=== PATIENT | male | born 2000 | race Caucasian/White ===

== ENCOUNTER 2025-07-24 19:40 | Emergency (ER) | payer OTHER, SELFPAY ==
--- NOTE | ~2025-07-24 | XR_ITS ---
CLINICAL HISTORY: pain post fall 4 view left knee Comparison: None provided Findings: Bones intact. No dislocations. No significant loss of joint space, osteophytes, or erosions. No joint effusion. No radiopaque foreign body. IMPRESSION: 1. No acute findings. This document has been electronically signed by: Mamadou Curran MD on 07/24/2025 20:28:07
[2025-07-24 19:55] VITALS: BP 141/65; PULSE 79; RESP 16; TEMP 36.5; O2SAT 98; BMI 34.1
--- OUTSIDE RECORDS SUMMARY | 2025-07-24 21:35 | XMS_ITS | Clinical Summary ---
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 May repeat once after 2 hours. 18 tablet 3 05/06/2025 6 Active amLODIPine (NORVASC) 2.5 mg tablet Take 1 tablet (2.5 mg total) by mouth 1 (one) time each day. 90 each 06/06/2025 5 Active Active Problems Problem Noted Date Diagnosed Date Class 1 obesity due to exces s calories with body mass index (BMI) of 33.0 to 33.9 in adult 05/06/2025 Primary hypertension 05/06/2025 History of cold sores 05/06/2025 Diarrhea 05/06/2025 Urine retention 01/20/2025 Overview (01/20/2025): Patient is follow by [facility] Assessment & Plan (01/20/2025 3:32 PM EST): Patient is to continue Flomax. He is also continue following up with urology. 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 Encounters Date Type Department Care Team Description 06/06/2025 2:30 PM EDT Office Visit Adult Medicine [address] [phone] Rosy Yu MD Muscle spasm (Primary Dx); Primary hypertension; Family history of hemochromatosis; Obesity (BMI 30-39.9); C. difficile diarrhea; Elevated total protein; Hyperphosphatemia 06/05/2025 9:26 AM EDT - 06/05/2025 11:59 PM EDT Hospital Encounter [facility] Xray [address] [place] [phone] Other dysphagia; Sensation of lump in throat; Dysuria Discharge Disposition: Home or Self Care 06/03/2025 Telephone Infectious Disease - [place] [address] [facility] [address] [place] [address] [place], [place] 05/27/2025 3:39 PM EDT - 05/27/2025 11:59 PM EDT Hospital Encounter Radiology Department - [address] [phone] Nonintractable chronic migraine Discharge Disposition: Home or Self Care 05/09/2025 Telephone Adult [address] [phone] Rosy Yu MD 05/06/2025 5:00 PM EDT Office Visit [address] [phone] Rosy Yu MD Primary hypertension (Primary Dx); Class 1 obesity due to excess calories with body mass index (BMI) of 33.0 to 33.9 in adult, unspecified whether serious comorbidity present; Leukocytosis, unspecified type; Blurry vision, bilateral; Nonintractable chronic migraine; Low blood potassium; History of cold sores; Chronic diarrhea; C. difficile diarrhea from Last 3 Months Social History Tobacco Use Types Packs/Day Years Used Date Smoking Tobacco: Never Assessed Housing Instability Answer Date Recorde d Are you worried that in the next 2 months you may not have stable housing? Yes 02/26/2025 Food Access & Nutrition Answer Date Rec orded Do you have access to a vari ety of food including fruits and vegetables? No 02/26/2025 Access to Healthcare Answer Date Record ed Within the last 3 months, ho w many times did you visit the emergency department for your medical care? 0 02/26/2025 Health Literacy Answer Date Recorded How often do you need to hav e someone help you when you read instructions, pamphlets, or other written material from your doctor or pharmacy? Never 02/26/2025 Caregiver: How often do you need to have someone help you when you read instructions, pamphlets, or other written material from your doctor or pharmacy? Not on file 02/26/2025 Financial Risk Answer Date Recorded How hard is it for you to pa y for the very basics like food, housing, medical care, and air conditioning / heating? Hard 02/26/2025 Transportation Answer Date Recorded Has the lack of transportati on kept you from meetings, work, or from getting things needed for daily living? No Has the lack of transportati on kept you from medical appointments or from getting medications? No 02/26/2025 Social Isolation Answer Date Recorded How often do you feel lonely or isolated from th ose around you? Rarely 02/26/2025 Food Risk Answer Date Recorded Within the past 12 months we worried whether our food would run out before we got money to buy more. Sometimes true 025 Within the past 12 months th e food we bought just didn't last and we didn't have money to get more. Sometimes true 02/26/2025 Dependent Care Answer Date Recorded Do you need help finding or paying for care for your loved ones. For example, early childhood special educator or elderly care for an older adult? No 02/26/2025 Education Answer Date Recorded Do you think completing more education or training, like finishing a GED, going to college, or learning a trade, would be helpful for you? Yes 02/26/2025 Employment and Income Answer Date Recor ded During the last four weeks, have you been actively looking for work? Yes 02/26/2025 Living Situation Answer Date Recorded What is your living situation? 0 02/26/2025 Sex and Gender Information Value Date Recorded Sex Assigned at Not on file Legal Sex Male 8:19 PM EDT Gender Identity Not on file Sexual Orientation Not on file Last Filed Vital Signs Vital Sign Reading Time Taken Comments Blood Pressure 112/72 06/06/2025 2:16 PM EDT Pulse 95 06/06/2025 2:16 PM EDT Temperature 36.6 C (97.8 F) 06/06/2025 2:16 PM EDT Respiratory Rate 16 05/06/2025 5:15 PM EDT Oxygen Saturation 98% 05/06/2025 5:15 PM EDT Inhaled Oxygen Concentration - - Weight 104 kg (230 lb) 06/06/2025 2:16 PM EDT Height 175.3 cm (5' 9 ) 06/06/2025 2:16 PM EDT Body Mass Index 33.97 06/06/2025 2:16 PM EDT Plan of Treatment Upcoming Encounters Date Type Department Care Team (Late st Contact Info) Description 08/06/2025 2:30 PM EDT Consult Infectious Disease - [place] [address] [facility] [address] [place] [phone] Rochelle Lackey MD 175 [facility] [address] [place] [address] 08/21/2025 2:00 PM EDT Office Visit [facility] for [place] - [place] [address] [facility] [address] [place] [phone] Jenny Victoria, SAY [address] [place] [address] 12/09/2025 4:30 PM EST Office Visit Adult Medicine [address] [phone] Rosy Yu MD [address] [place] [address] Health Maintenance Due Date Last Done Comments Influenza Vaccine (#1) 2025 , 09/03/2019, 11/08/2018 Social Influencers of Health Screening 02/26/2026 02/26/2025 Hypertension/CHF/CAD Annual BMP Blood Test 06/06/2026 06/06/2025, 05/13/2025, 01/20/2025, Additional history exists DTaP,Tdap,and Td Vaccines (7 - Td or Tdap) 09/16/2028 09/16/2018, 07/07/2010, 10/14/2002, Additional history exists Cholesterol Screening (Lipid Panel) 01/20/2030 01/20/2025, 09/22/2021 Hepatitis B Vaccines Completed 07/06/1999, 1998, 1998 HIB Vaccines Completed 03/28/2000, 03/1999, 07/06/1999 IPV Vaccines Completed 10/14/2002, 07/2000, 08/24/1999, Additional history exists MMR Vaccines Completed 07/23/2003, 04/18/2000 Meningococcal ACWY Vaccine Aged Out 07/07/2010 N o longer eligible based on patient's age to complete this topic Varicella Vaccines Completed 07/07/2010, 04/18/2000 HPV Vaccines Discontinued 10/26/2021, 09/22/2021 HIV Screening Completed 01/20/2025 Hepatitis C Screening Completed 01/20/2025, 021 Depression Screening Completed 02/26/2025 COVID-19 Vaccine Discontinued Hepatitis A Vaccines Discontinued Meningococcal B Vaccine Aged Out No l onger eligible based on patient's age to complete this topic Pneumococcal Vaccine: Pediatrics (0 to 5 Years) and At-Risk Patients (6 to 49 Years) Aged Out No longer eligible based on patient's age to complete this topic RSV Immunization Patients Under 20 months Aged Out No longer eligible based on patient's age to complete this topic Procedures Procedure Name Priority Date/Time Associated Diagnosis Comments HERNANDEZ URINE CULTURE TUBE Routine 06/06/20 4:48 PM EDT Other dysphagia Sensation of lump in throat Dysuria URINALYSIS WITH REFLEX MICROSCOPIC AND CULTURE Routine 06/06/2025 4:39 PM EDT Other dysphagia Sensation of lump in throat Dysuria URINALYSIS WITH REFLEX MICROSCOPIC AND CULTURE Routine 06/06/2025 4:39 PM EDT Other dysphagia Sensation of lump in throat Dysuria COMPREHENSIVE METABOLIC PANEL Routine 06/06/2025 4:39 PM EDT Muscle spasm MAGNESIUM Routine 06/06/2025 4:39 PM EDT Muscle spasm PHOSPHORUS Routine 06/06/2025 4:39 PM EDT Muscle spasm CREATINE KINASE Routine 06/06/2025 4:39 PM EDT Muscle spasm HEMOCHROMATOSIS MUTATION Routine 025 4:39 PM EDT Family history of hemochromatosis XR BARIUM SWALLOW WITH VIDEO AND SPEECH Routine 06/05/2025 10:07 AM EDT Other dysphagia Sensation of lump in throat Dysuria GARBAGE PICK UP MAN VIDEOFLUOROSCOPIC SWALLOW STUDY WITH BARIUM Routine 06/05/2025 9:45 AM EDT Other dysphagia Sensation of lump in throat Dysuria CLOSTRIDIUM DIFFICILE PCR Routine 05/28/2025 2:05 PM EDT Chronic diarrhea GASTROINTESTINAL PATHOGENS BY PCR Routine 05/28/2025 2:05 PM EDT Chronic diarrhea OVA AND PARASITE EXAMINATION Routine 05/28/2025 2:05 PM EDT Chronic diarrhea CLOSTRIDIUM DIFFICILE TOXIN Routine 05/28/2025 2:05 PM EDT Chronic diarrhea MR BRAIN WO CONTRAST Routine 05/27/2025 4:30 PM EDT Nonintractable chronic migraine IMMUNOGLOBULIN IGA Routine 05/13/2025 11:13 AM EDT Chronic diarrhea GLIADIN ANTIBODIES, SERUM Routine 05/13/2025 11:13 AM EDT Chronic diarrhea ENDOMYSIAL ANTIBODY, IGA Routine 025 11:13 AM EDT Chronic diarrhea CBC WITH AUTO DIFFERENTIAL Routine 05/13/2025 11:13 AM EDT Leukocytosis, unspecified type CBC AND DIFFERENTIAL Routine 05/13/2025 11:13 AM EDT Leukocytosis, unspecified type HERPES SIMPLEX VIRUS 1 AND 2, IGG Routine 05/13/2025 11:13 AM EDT History of cold sores COMPREHENSIVE METABOLIC PANEL Routine 05/13/2025 11:13 AM EDT Chronic diarrhea TISSUE TRANSGLUTAMINASE, IGA Routine 05/13/2025 11:13 AM EDT Chronic diarrhea HERPES SIMPLEX VIRUS 1 AND 2 PCR, QUALITATIVE Routine 05/13/2025 11:13 AM EDT History of cold sores HEPATITIS C ANTIBODY Routine 01/20/2025 3:34 PM EST Annual physical exam HIV 1, 2 ANTIBODY, P24 ANTIGEN WITH REFLEX TO DIFFERENTIATION Routine 01/20/2025 3:34 PM EST Annual physical exam LIPID PANEL WITH REFLEX TO DIRECT LDL Routine 01/20/2025 3:34 PM EST Encounter for screening for cardiovascular disorders from Last 3 Months or Most Recently Relevant to Health Maintenance Results * Hernandez urine culture tube (06/06/2025 4:48 PM EDT) Extra Tube Hold for add-ons. 06/06/2025 7:01 PM EDT [facility] Comment:Auto resulted. Urine Urine specimen obtained by clean catch procedure / Unknown 06/06/2025 4:48 PM EDT 06/06/2025 4:48 PM EDT us Christian Gibbons ELECTRONICS LEAD LAB URINE ORDERABLES Final R esult [facility] [address] [place] [address], * Urinalysis with reflex microscopic and culture (06/06/2025 4:39 PM EDT) Specific [place] Urine 1.016 1.003 - 1.030 LAB URINALYSIS - AUTOMATED METHOD 06/06/2025 6:51 PM EDT [facility] pH, Urine 7.0 5.0 - 8.0 pH LAB URINALYSIS - AUTOMATED METHOD 06/06/2025 6:51 PM [facility] Leukocytes, Urine Negative Negative LAB URINALYSIS - AUTOMATED METHOD 06/06/2025 6:51 PM [facility] Nitrite, Urine Negative Negative LAB URINALYSIS - AUTOMATED METHOD 06/06/2025 6:51 PM [facility] Protein, Urine Negative <=Trace mg/dL LAB URINALYSIS - AUTOMATED METHOD 06/06/2025 6:51 PM [facility] Glucose, Urine Negative Negative mg/dL LAB URINALYSIS - AUTOMATED METHOD 06/06/2025 6:51 PM [facility] Ketones, Urine Negative Negative mg/dL LAB URINALYSIS - AUTOMATED METHOD 06/06/2025 6:51 PM [facility] Urobilinogen, Urine 0.2 0.2 - 1.0 mg/dL LAB URINALYSIS - AUTOMATED METHOD 06/06/2025 6:51 PM [facility] Bilirubin, Urine Negative Negative LAB URINALYSIS - AUTOMATED METHOD 06/06/2025 6:51 PM [facility] Blood, Urine Negative Negative LAB URINALYSIS - AUTOMATED METHOD 06/06/2025 6:51 PM [facility] Urine Urine specimen obtained by clean catch procedure / Unknown Non-blood Collection / Unknown 06/06/2025 4:39 PM EDT 06/06/2025 4:39 PM EDT us Christian Gibbons NP LAB URINE ORDERABLES Final R esult [facility] [address] [place] [address], * Hemochromatosis mutation (06/06/2025 4:39 PM EDT) Hereditary Hemochromatosis See Below 06/17/2025 4:41 AM EDT [facility] Comment: RESULT: NEGATIVE Interpretation: DNA testing indicates that this individual is negative for the C282Y and H63D pathogenic variants in the HFE gene. This negative result significantly reduces the likelihood of hereditary hemochromatosis (HH) in this individual. However, it does not rule out the presence of other pathogenic variants within the HFE gene or a diagnosis of HH. The risk of this individual to carry an HFE pathogenic variant other than those tested in this assay depends greatly on family and clinical history as well as ethnicity. This assay does not test for other primary or secondary iron overload disorders. Laboratory results and submitted clinical information reviewed by Daksha Robles, PhD, [facility]. DETAILED ASSAY INFORMATION: Hereditary hemochromatosis (HH) is an autosomal recessive disorder of iron metabolism that can result in iron overload and potential organ failure. It is one of the most common genetic disorders in individuals of - ancestry, with an estimated carrier frequency of 10%. HH is caused by pathogenic variants in the HFE gene. Most individuals with HH (60-90%) are homozygous for the C282Y pathogenic variant. A smaller percentage of affected individuals are either compound heterozygous for the C282Y and H63D pathogenic variants (3%-8%), or homozygous for the H63D pathogenic variant (approximately 1%). METHODOLOGY: This assay detects two pathogenic variants in the HFE gene, C282Y (NM 163830.2: c.845G>A, p.[id number]) and H63D (NM 546303.2: c.187C>G, p.[id number]), that are commonly associated with HH. These variants are detected by multiplex-polymerase chain reaction (PCR) amplification, followed by restriction enzyme digestion and capillary electrophoresis. LIMITATIONS: This assay does not detect other pathogenic variants in the HFE gene that may be associated with HH. Although rare, false positive or false negative results may occur. All results should be interpreted in the context of clinical findings, relevant history, and other laboratory data. Health care providers, please contact your local [employer]' genetic counselor or call [phone] ( ) for assistance with the interpretation of these results. This test was developed and its analytical performance characteristics have been determined by [employer] [facility]. It has not been cleared or approved by FDA. This assay has been validated pursuant to the CLIA regulations and is used for clinical purposes. For more information, please refer to http://education.Infiniu/faq/hemochromatosis. (This link is being provided for informational/educational purposes only.) A portion of the testing was performed at [facility]. Reviewed and signed by Laboratory results and submitted clinical information reviewed by Daksha Robles, PhD, [facility], Signed on 06/16/2025 at 23:48 Test Performed at: [employer] [address] [address] Rain Cordero MD, PhD, [facility] Blood Venous blood specimen / Unknown Venipuncture / Unknown 06/06/2025 4:39 PM EDT 06/06/2025 4:39 PM EDT us Rosy Yu MD LAB MOLECULAR DIAGNOSTICS O RDERABLES Final Result [facility] [address] [place] [address] * (ABNORMAL) Phosphorus (06/06/2025 4:39 PM EDT) Phosphorus 4.8(H) 2.5 - 4.5 mg/dL LAB CHEMISTRY METHOD 06/06/2025 7:22 PM EDT [facility] Blood Venous blood specimen / Unknown Venipuncture / Unknown 06/06/2025 4:39 PM EDT 06/06/2025 4:39 PM EDT us Rosy Yu MD LAB BLOOD ORDERABLES Final Result Performing Organization Address [facility] Co de Phone Number [facility] [address] [place] [address], [place] [phone] * Magnesium (06/06/2025 4:39 PM EDT) [facility] Magnesium 2.2 1.9 - 2.6 mg/dL LAB CHEMISTRY METHOD 06/06/2025 7:22 PM EDT [facility] Blood Venous blood specimen / Unknown Venipuncture / Unknown 06/06/2025 4:39 PM EDT 06/06/2025 4:39 PM EDT us Rosy Yu MD LAB BLOOD ORDERABLES Final Result Performing Organization Address [facility] de Phone Number [facility] [address] [place] [address], [place] [phone] * Creatine kinase (06/06/2025 4:39 PM EDT) [facility] Total CK 142 22 - 269 unit/L LAB CHEMISTRY METHOD 06/06/2025 7:22 PM EDT [facility] Blood Venous blood specimen / Unknown Venipuncture / Unknown 06/06/2025 4:39 PM EDT 06/06/2025 4:39 PM EDT us Rosy Yu MD LAB BLOOD ORDERABLES Final Result Performing Organization Address [facility] Co de Phone Number [facility] [address] [place] [address], [place] [phone] * (ABNORMAL) Comprehensive metabolic panel (06/06/2025 4:39 PM EDT) Only the most recent of2 resultswithin the time period is included. Sodium 139 133 - 145 mmol/L LAB CHEMISTRY METHOD 06/06/2025 7:30 PM [facility] Potassium 3.8 3.5 - 5.5 mmol/L LAB CHEMISTRY METHOD 06/06/2025 7:30 PM [facility] Chloride 101 96 - 110 mmol/L LAB CHEMISTRY METHOD 06/06/2025 7:30 PM [facility] CO2 28 21 - 32 mmol/L LAB CHEMISTRY METHOD 06/06/2025 7:30 PM [facility] Anion Gap 10 3 - 11 LAB CHEMISTRY METHOD 06/06/2025 7:30 PM [facility] Glucose 78 70 - 100 mg/dL LAB CHEMISTRY METHOD 06/06/2025 7:30 PM [facility] BUN 10 5 - 25 mg/dL LAB CHEMISTRY METHOD 06/06/2025 7:30 PM [facility] Creatinine 0.90 0.70 - 1.30 mg/dL LAB CHEMISTRY METHOD 06/06/2025 7:30 PM [facility] eGFR 121 >=60 mL/min/1. 73m2 LAB CHEMISTRY METHOD 06/06/2025 7:30 PM [facility] Comment:Calculation based on the Chronic Kidney Disease Epidemiology Collaboration (CKD-EPI) equation refit without adjustment for race. BUN/Creatinine Ratio 11.1 LAB CHEMISTRY METHOD 06/06/2025 7:30 PM [facility] Calcium 10.1 8.5 - 10.5 mg/dL LAB CHEMISTRY METHOD 06/06/2025 7:30 PM [facility] AST (SGOT) 23 10 - 42 unit/L LAB CHEMISTRY METHOD 06/06/2025 7:30 PM [facility] ALT (SGPT) 57 10 - 60 unit/L LAB CHEMISTRY METHOD 06/06/2025 7:30 PM [facility] Alkaline Phosphatase 99 42 - 121 unit/L LAB CHEMISTRY METHOD 06/06/2025 7:30 PM EDT [facility] Total Protein 8.2(H) 6.0 - 8.0 g/dL LAB CHEMISTRY METHOD 06/06/2025 7:30 PM EDT [facility] Albumin 5.1(H) 3.2 - 5.0 g/dL LAB CHEMISTRY METHOD 06/06/2025 7:30 PM EDT [facility] Total Bilirubin 0.7 0.0 - 1.4 mg/dL LAB CHEMISTRY METHOD 06/06/2025 7:30 PM EDT [facility] Blood Venous blood specimen / Unknown Venipuncture / Unknown 06/06/2025 4:39 PM EDT 06/06/2025 4:39 PM EDT us Rosy Yu MD LAB BLOOD ORDERABLES Final Result [facility] [address] [place] [address], [place] [phone] * XR Barium Swallow with Video and Speech (06/05/2025 10:07 AM EDT) Anatomical Region Laterality Modality Head and Neck Radiographic Radha ging 06/05/2025 10:5 1 AM EDT Impressions 06/05/2025 12:20 PM EDT Normal swallowing function. Please refer to the dedicated speech pathologist report for further details as clinically indicated. -------- FINAL REPORT -------- Dictated By: Analia Rogers Dictated Date: 06/05/2025 10:51 ET Assigned Physician: Estiven Collado Reviewed and Electronically Signed By: Estiven Collado Signed Date: 06/05/2025 12:20 ET Workstation ID: [id number] Transcribed By: Self Edit Transcribed Date: 06/05/2025 10:54 ET Resident/PA/ELECTRONICS LEAD: Analia Rogers Narrative 06/05/2025 12:20 PM EDT CLINICAL HISTORY: Difficulty swallowing. STUDY: Modified barium swallow study COMPARISON: None HISTORY: Patient is a 24-year-old male with history of globus sensation, dysphagia. TECHNIQUE: Multiple sequential fluoroscopic images of the lateral neck were obtained for a swallowing function study. Barium enhanced consistencies of pudding, honey, nectar, thin liquid, semi- solid, and a 13 mm barium tablet were utilized for evaluation. Examination was performed with the speech therapist present. FINDINGS: There was no evidence for laryngeal penetration or aspiration of the various consistencies. A 13mm barium tablet was swallowed without difficulty with prompt passage of pill from the esophagus into the stomach. DAP: 0.1 Gycm^2 Procedure Note Estiven Collado MD - 06/05/2025 CLINICAL HISTORY: Difficulty swallowing. STUDY: Modified barium swallow study COMPARISON: None HISTORY: Patient is a 24-year-old male with history of globus sensation,dysphagia. TECHNIQUE: Multiple sequential fluoroscopic images of the lateral neckwere obtained for a swallowing function study. Barium enhancedconsistencies of pudding, honey, nectar, thin liquid, semi-solid, and a 13mm barium tablet were utilized for evaluation. Examination was performedwith the speech therapist present. FINDINGS: There was no evidence for laryngeal penetration or aspiration of thevarious consistencies. A 13mm barium tablet was swallowed withoutdifficulty with prompt passage of pill from the esophagus into thestomach. DAP: 0.1 Gycm^2 IMPRESSION: Normal swallowing function. Please refer to the dedicated speech pathologist report for furtherdetails as clinically indicated. -------- FINAL REPORT -------- Dictated By: Analia Rogers Dictated Date: 06/05/2025 10:51 ET Assigned Physician: Estiven Collado Reviewed and Electronically Signed By: Estiven Collado Signed Date: 06/05/2025 12:20 ET Workstation ID: [id number] Transcribed By: Self Edit Transcribed Date: 06/05/2025 10:54 ET Resident/PA/ELECTRONICS LEAD: Analia Rogers Christian Gibbons NP IMG FLUOROSCOPY PROCEDURES F inal Result * GARBAGE PICK UP MAN videofluoroscopic swallow study with barium (06/05/2025 9:45 AM EDT) Janett Hurst, NICHOLE - 06/05/2025 9:45 AM EDT NICHOLE Teresa 06/05/2025 1:18 PM Speech/Language Pathology OUTPATIENT MODIFIED BARIUM SWALLOW STUDY/ VIDEOFLUOROSCOPIC EVALUATION OF THE SWALLOW NAME: José Antonio Page DATE OF : 2000 DATE: 06/05/2025 RECOMMENDATIONS: Recommendations/Treat Recommendations Comment: f/u for Neurology due to symptoms Solid Consistency: IDDSI Level 7 Regular Liquid Consistency: Thin liquids Liquid Administration Via: Straw, Cup Recommended Medication Route: PO Recommended Medication Administration: (per pt preference) Supervision: Independent Compensations: Small sips/bites, Alternating liquids and solids (Recommend Swallow strategies with epsiodes of fatigue.) Postural Changes and/or Swallow Maneuvers: Upright TREATMENT RECOMMENDATIONS: Evaluation Only - No Additional Skilled GARBAGE PICK UP MAN Needs Indicated at this time. Summary and Impressions: José Antonio Page is a 24 y.o. who presents with WNL Oropharyngeal Swallow Function on MBS today. No laryngeal penetration and no tracheal aspiration. Pharynx cleared of any residue. Discussed use of strategies when pt has episodes of fatigue. Pt also c/o misarticulations, new for patient. Pt has f/u with Neurology. Recommend GARBAGE PICK UP MAN if warranted after work up. 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 Progressively worse after 2 years. Upcoming Neurology appt due to Migraines. Also has spasms and fatigues. Diet Prior to this Study: Regular/thin liquids Dysphagia Diagnosis: Within Functional Limits SUBJECTIVE: Pleasant, ambulatory. Other dysphagia [R13.19] Sensation of lump in throat [R09.A2] Dysuria [R30.0] GARBAGE PICK UP MAN VIDEOFLUOROSCOPIC SWALLOW STUDY WITH BARIUM [[id number]] XR BARIUM SWALLOW WITH VIDEO AND SPEECH [[id number]] ALLERGIES: Allergies Allergen Reactions Penicillin Rash OBJECTIVE Respiratory status: Room air DYSPHAGIA HISTORY/PREVIOUS MBSs none DYSPHAGIA SYMPTOMS REPORTED: Difficulty swallowing food MENTAL STATUS: Alert , Responsive, and Cooperative Oral/Motor: Oral motor skills WNL for Speech/Swallowing tasks during MBS. Fluoroscopy View: Lateral Position during Eval: Standing CONSISTENCIES TRIALED FOOD: IDDSI Level 7 Regular , IDDSI Level 5 Minced and Moist, and IDDSI Level 4 Puree LIQUID: IDDSI Level 3 Moderately Thick, IDDSI Level 2 Mildly Thick, and IDDSI Level 0 Thin BARIUM TABLET: whole with water Oral Phase: Oral Phase: Within Functional Limits Pharyngeal Phase: Pharyngeal Phase: Within Functional Limits Cricopharyngeal/Esophageal Phase: Cricopharyngeal Phase: Within Functional Limits EDUCATION Education: Education provided: Reviewed MBS video Swallow strategies Applied Knowledge, Verbal Understanding, and Demonstrated Skills Janett Yousif, GARBAGE PICK UP MAN 06/05/2025 Christian Gibbons NP GARB[employer] P[employer] MAN ORDERABLES Final Result * Gastrointestinal pathogens molecular study (05/28/2025 2:05 PM EDT) Campylobacter Detection by PCR Not Detected Not Detected LAB MICROBIOLOGY METHOD 5 6:03 PM EDT [facility] Plesiomonas shigelloides Detection by PCR Not Detected Not Detected LAB MICROBIOLOGY METHOD 5 6:03 PM EDT [facility] Salmonella Detection by PCR Not Detected Not Detected LAB MICROBIOLOGY METHOD 5 6:03 PM EDT [facility] Vibrio Detection by PCR Not Detected Not Detected LAB MICROBIOLOGY METHOD 5 6:03 PM EDT [facility] Vibrio cholerae Detection by PCR Not Detected Not Detected LAB MICROBIOLOGY METHOD 5 6:03 PM EDT [facility] Yersinia enterocolitica Detection by PCR Not Detected Not Detected LAB MICROBIOLOGY METHOD 5 6:03 PM EDT [facility] Enteroaggregative E coli EAEC Detection by PCR Not Detected Not Detected LAB MICROBIOLOGY METHOD 5 6:03 PM EDT [facility] Enteropathogenic E coli EPEC Detection Not Detected Not Detected LAB MICROBIOLOGY METHOD 5 6:03 PM EDT [facility] Enterotoxigenic E coli ETEC LTST Detection Not Detected Not Detected LAB MICROBIOLOGY METHOD 5 6:03 PM EDT [facility] Shiga-like toxin producing E coli STEC STX1 STX2 Det Not Detected Not Detected [facility] Shigella Enteroinvasive E coli EIEC Detection Not Detected Not Detected LAB MICROBIOLOGY METHOD 5 6:03 PM EDT [facility] Cryptosporidium Detection by PCR Not Detected Not Detected [facility] Cyclospora cayetanensis Detection by PCR Not Detected Not Detected LAB MICROBIOLOGY METHOD 5 6:03 PM [facility] Entamoeba histolytica Detection by PCR Not Detected Not Detected LAB MICROBIOLOGY METHOD 5 6:03 PM [facility] Giardia lamblia Detection by PCR Not Detected Not Detected LAB MICROBIOLOGY METHOD 5 6:03 PM [facility] Adenovirus F 40 41 Detection by PCR Not Detected Not Detected LAB MICROBIOLOGY METHOD 5 6:03 PM [facility] Astrovirus Detection by PCR Not Detected Not Detected LAB MICROBIOLOGY METHOD 5 6:03 PM [facility] Norovirus GI GII Detection by PCR Not Detected LAB MICROBIOLOGY METHOD 5 6:03 PM [facility] Sapovirus Detection by PCR Not Detected Not Detected LAB MICROBIOLOGY METHOD 5 6:03 PM [facility] Rotavirus A Detection by PCR Not Detected Not Detected LAB MICROBIOLOGY METHOD 5 6:03 PM [facility] Stool Rectum structure / Unknown Non-blood Collection / Unknown 05/28/2025 2:05 PM EDT 05/28/2025 2:05 PM EDT [facility] - 05/28/2025 6:03 PM EDT PCR testing is much more sensitive than traditional techniques and allows for the detection of low numbers of stool pathogens. The clinical correlation of PCR results with the need for treatment and clinical outcomes has not been established. Therefore the results of PCR testing for stool pathogens must be taken into clinical context when making treatment decisions. This is a diagnostic test only, repeat testing for cure is not advised. You may consider infectious disease consult for additional guidance. Testing Performed by [facility] Rosy Yu MD LAB MICROBIOLOGY - GENERAL ORDERABLES Final Result Performing Organization Address [facility] Co de Phone Number [facility] [address] [place] [address], [place] [phone] * Ova and parasite examination (05/28/2025 2:05 PM EDT) Ova and Parasite No Ova or Parasite seen. 06/02/2025 11:58 AM EDT [facility] Stool Rectum structure / Unknown Non-blood Collection / Unknown 05/28/2025 2:05 PM EDT 05/28/2025 2:05 PM EDT Narrative [facility] - 06/02/2025 11:58 AM EDT Special test request required for Coccidia and Microsporidia. Rosy Yu MD LAB MICROBIOLOGY - GENERAL ORDERABLES Final Result Performing Organization Address [facility] Co de Phone Number [facility] [address] [place] [address], [place] [phone] * (ABNORMAL) Clostridium difficile molecular study (05/28/2025 2:05 PM EDT) Clostridium difficile PCR Positive (AA) Negative LAB MICROBIOLOGY METHOD 05/28/2025 6:32 PM EDT [facility] Comment: CRITICAL RESULT POSITIVE FOR TOXIN PRODUCING CLOSTRIDIOIDES DIFFICILE, NO ADDITIONAL TESTING IS NECESSARY. REPEAT SAMPLES SHOULD NOT BE SUBMITTED FOR TEST OF CURE. Stool Rectum structure / Unknown Non-blood Collection / Unknown 05/28/2025 2:05 PM EDT 05/28/2025 5:21 PM EDT Rosy Yu MD LAB MICROBIOLOGY - GENERAL ORDERABLES Final Result Performing Organization Address [facility] Co de Phone Number [facility] [address] [place] [address], [place] [phone] * Clostridium difficile toxin (05/28/2025 2:05 PM EDT) C difficile Toxins A+B, EIA 05/28/2025 5:21 PM EDT [facility] Comment:Refer to C. difficil e PCR assay for results. Stool Rectum structure / Unknown Non-blood Collection / Unknown 05/28/2025 2:05 PM EDT 05/28/2025 2:05 PM EDT Rosy Yu MD LAB MICROBIOLOGY - GENERAL ORDERABLES Final Result Performing Organization Address [facility] de Phone Number [facility] [address] [place] [address], [place] [phone] * MR Brain wo Contrast (05/27/2025 4:30 PM EDT) Anatomical Region Laterality Modality Head and Neck Magnetic Resonan ce 05/27/2025 4:31 PM EDT Impressions 05/27/2025 4:37 PM EDT Borderline low-lying cerebellar tonsils. Otherwise, unremarkable exam. -------- FINAL REPORT -------- Dictated By: Luzmaria Davis Dictated Date: 05/27/2025 16:31 ET Assigned Physician: Luzmaria Davis Reviewed and Electronically Signed By: Luzmaria Davis Signed Date: 05/27/2025 16:37 ET Workstation ID: [id number] Transcribed By: Self Edit Transcribed Date: 05/27/2025 16:31 ET Narrative 05/27/2025 4:37 PM EDT MR BRAIN WO CONTRAST MRI BRAIN WITHOUT CONTRAST HISTORY: Chronic migraine. COMPARISON: CT head and CTA head 04/22/2025. Technique: MRI of the brain without contrast was performed utilizing the standard departmental protocol. FINDINGS: The ventricles and sulci are normal in size and symmetric. There is no acute intracranial hemorrhage or acute infarct. There is no mass effect or midline shift. The basal cisterns are patent. The paranasal sinuses and mastoid air cells are clear. The cerebellar tonsils extend to the level of the foramen magnum. Pituitary gland is grossly unremarkable. Infundibulum is midline. Procedure Note Luzmaria Davis MD - 05/27/2025 MR BRAIN WO CONTRAST MRI BRAIN WITHOUT CONTRAST HISTORY: Chronic migraine. COMPARISON: CT head and CTA head 04/22/2025. Technique: MRI of the brain without contrast was performed utilizing thestandard departmental protocol. FINDINGS: The ventricles and sulci are normal in size and symmetric. Thereis no acute intracranial hemorrhage or acute infarct. There is no masseffect or midline shift. The basal cisterns are patent. The paranasal sinuses and mastoid air cells are clear. The cerebellar tonsils extend to the level of the foramen magnum. Pituitary gland is grossly unremarkable. Infundibulum is midline. IMPRESSION: Borderline low-lying cerebellar tonsils. Otherwise, unremarkable exam. -------- FINAL REPORT -------- Dictated By: Luzmaria Davis Dictated Date: 05/27/2025 16:31 ET Assigned Physician: Luzmaria Davis Reviewed and Electronically Signed By: Luzmaria Davis Signed Date: 05/27/2025 16:37 ET Workstation ID: [id number] Transcribed By: Self Edit Transcribed Date: 05/27/2025 16:31 ET us Rosy Yu MD IM MRI PROCEDURES Final Re sult * Herpes simplex virus 1 and 2 molecular study, qualitative (05/13/2025 11:13 AM EDT) Specimen Source Blood - EDTA 05/16/2025 10:58 AM EDT [facility] Herpes simplex Virus I Not detected Not detected 05/16/2025 10:58 AM EDT [facility] Herpes simplex Virus II Not detected Not detected 05/16/2025 10:58 AM EDT [facility] Comment: This test utilizes a real-time polymerase chain reaction procedure to amplify and detect portions of the herpes simplex virus glycoprotein G genes. The analytical sensitivity of this assay is 50 copies/mL. A Not detected result does not rule out infection. This test uses commercial reagents that have not been approved or cleared by the FDA. The FDA has determined that such clearance or approval is not necessary. The performance characteristics of this procedure were determined by [facility]. This test is performed pursuant to a license agreement with [employer] Test performed at [facility], [address] , [place] [address] Leanne Velasquez MD, PhD - Diagnostic Sales Specialist Blood Venous blood specimen / Unknown Venipuncture / Unknown 05/13/2025 11:13 AM EDT 05/13/2025 11:13 AM EDT Rosy Yu MD LAB MICROBIOLOGY - GENERAL ORDERABLES Final Result [facility] [address] [place] [address] * (ABNORMAL) Herpes simplex virus 1 and 2, IgG (05/13/2025 11:13 AM EDT) HSV 1 IgG 52.60(H) <=0.90 index aria LAB CHEMISTRY METHOD 05/13/2025 3:11 PM EDT [facility] HSV-1 IgG Interpretation Positive(A) Negative LAB CHEMISTRY METHOD 05/13/2025 3:11 PM EDT [facility] HSV 2 IgG 0.05 <=0.90 index aria LAB CHEMISTRY METHOD 05/13/2025 3:11 PM EDT [facility] HSV-2 IgG Interpretation Negative Negative LAB CHEMISTRY METHOD 05/13/2025 3:11 PM EDT [facility] Blood Venous blood specimen / Unknown Venipuncture / Unknown 05/13/2025 11:13 AM EDT 05/13/2025 11:13 AM EDT Rosy Yu MD LAB BLOOD ORDERABLES Final Result [facility] [address] [place] [address], [place] [phone] * Endomysial antibody, IgA (05/13/2025 11:13 AM EDT) [facility] Endomysial IgA Negative Negative 05/16/2025 10:43 AM EDT [facility] Blood Venous blood specimen / Unknown Venipuncture / Unknown 05/13/2025 11:13 AM EDT 05/13/2025 11:13 AM EDT Rosy Yu MD LAB BLOOD ORDERABLES Final Result Performing Organization Address City/[facility]/ZIP Co de Phone Number [facility] [address] [place] [address], [place] [phone] * (ABNORMAL) CBC auto differential (05/13/2025 11:13 AM EDT) [facility] WBC 8.9 4.8 - 10.8 K/mcL LAB HEMETOLOGY METHOD 05/13/2025 12:42 PM EDT [facility] RBC 5.70(H) 4.50 - 5.50 M/mcL LAB HEMETOLOGY METHOD 05/13/2025 12:42 PM EDT [facility] Hemoglobin 16.3 13.5 - 17.5 g/dL LAB HEMETOLOGY METHOD 05/13/2025 12:42 PM EDT [facility] Hematocrit 48.9 42.0 - 54.0 % LAB HEMETOLOGY METHOD 05/13/2025 12:42 PM EDT [facility] MCV 86.5 79.0 - 98.0 FL LAB HEMETOLOGY METHOD 05/13/2025 12:42 PM EDT [facility] MCH 28.8 27.0 - 32.0 pcg LAB HEMETOLOGY METHOD [facility]/13[facility]2025 [facility] MCHC 33.3 32.0 - 37.0 g/dL LAB HEMETOLOGY METHOD 05/13/2025 12:42 PM [facility] RDW 12.9 11.0 - 15.0 % LAB HEMETOLOGY METHOD 05/13/2025 12:42 PM EDT [facility] Platelets 302 130 - 400 K/mcL LAB HEMETOLOGY METHOD 05/13/2025 12:42 PM [facility] MPV 9.2 7.0 - 11.0 FL LAB HEMETOLOGY METHOD 05/13/2025 12:42 PM [facility] NRBC 0.0 <1.0 % LAB HEMETOLOGY METHOD 05/13/2025 12:42 PM [facility] NRBC Absolute 0.00 <0.10 K/mcL LAB HEMETOLOGY METHOD 05/13/2025 12:42 PM [facility] Neutrophils Relative 60.9 % LAB HEMETOLOGY METHOD 05/13/2025 12:42 PM [facility] Lymphocytes Relative 28.4 % LAB HEMETOLOGY METHOD 05/13/2025 12:42 PM [facility] Monocytes Relative 8.4 % LAB HEMETOLOGY METHOD 05/13/2025 12:42 PM [facility] Eosinophils Relative 1.1 % LAB HEMETOLOGY METHOD 05/13/2025 12:42 PM [facility] Basophils Relative 0.6 % LAB HEMETOLOGY METHOD 05/13/2025 12:42 PM [facility] Immature Granulocytes Relative 0.6 % LAB HEMETOLOGY METHOD 05/13/2025 12:42 PM EDT [facility] Neutrophils Absolute 5.43 1.50 - 7.00 K/mcL LAB HEMETOLOGY METHOD 05/13/2025 12:42 PM EDT [facility] Lymphocytes Absolute 2.53 1.00 - 5.00 K/mcL LAB HEMETOLOGY METHOD 05/13/2025 12:42 PM EDT [facility] Monocytes Absolute 0.75 0.20 - 1.00 K/mcL LAB HEMETOLOGY METHOD 05/13/2025 12:42 PM EDT [facility] Eosinophils Absolute 0.10 0.00 - 0.50 K/mcL LAB HEMETOLOGY METHOD 05/13/2025 12:42 PM EDT [facility] Basophils Absolute 0.05 0.00 - 0.20 K/mcL LAB HEMETOLOGY METHOD 05/13/2025 12:42 PM EDT [facility] Immature Granulocytes Absolute 0.05(H) 0.00 - 0.03 K/mcL LAB HEMETOLOGY METHOD 05/13/2025 12:42 PM EDT [facility] Blood Venous blood specimen / Unknown Venipuncture / Unknown 05/13/2025 11:13 AM EDT 05/13/2025 11:13 AM EDT us Rosy Yu MD LAB BLOOD ORDERABLES Final Result [facility] [address] [place] [address], * Gliadin antibodies, serum (05/13/2025 11:13 AM EDT) Gliadin IgA 5 <20 units LAB CHEMISTRY METHOD 05/14/2025 11:56 AM EDT [facility] Gliadin IgG 1 <20 units LAB CHEMISTRY METHOD 05/14/2025 11:56 AM EDT [facility] Gliadin IgA Antibody Negative Negative LAB CHEMISTRY METHOD 05/14/2025 11:56 AM EDT [facility] Gliadin IgG Antibody Negative Negative LAB CHEMISTRY METHOD 05/14/2025 11:56 AM EDT [facility] Blood Venous blood specimen / Unknown Venipuncture / Unknown 05/13/2025 11:13 AM EDT 05/13/2025 11:13 AM EDT Rosy Yu MD LAB BLOOD ORDERABLES Final Result Performing Organization Address City/[facility]/ZIP Co de Phone Number [facility] [address] [place] [address], [place] [phone] * Tissue transglutaminase, IgA (05/13/2025 11:13 AM EDT) Tissue Transglutaminase Ab, IgA Quant 1 <4 unit/mL LAB CHEMISTRY METHOD 05/14/2025 11:59 AM EDT [facility] Tissue Transglutaminase Ab, IgA Negative Negative LAB CHEMISTRY METHOD 05/14/2025 11:59 AM EDT [facility] Blood Venous blood specimen / Unknown Venipuncture / Unknown 05/13/2025 11:13 AM EDT 05/13/2025 11:13 AM EDT Rosy Yu MD LAB BLOOD ORDERABLES Final Result [facility] [address] [place] [address], [place] [phone] * Immunoglobulin IgA (05/13/2025 11:13 AM EDT) IgA 134 61 - 348 mg/dL LAB CHEMISTRY METHOD 05/13/2025 3:29 PM EDT [facility] Blood Venous blood specimen / Unknown Venipuncture / Unknown 05/13/2025 11:13 AM EDT 05/13/2025 11:13 AM EDT Rosy Yu MD LAB BLOOD ORDERABLES Final Result Performing Organization Address City/[facility]/ZIP Co de Phone Number [facility] [address] [place] [address], [place] [phone] * Hepatitis C antibody (01/20/2025 3:34 PM EST) Hepatitis C Antibody Negative Negative LAB CHEMISTRY METHOD 01/20/2025 7:39 PM EST [facility] Blood Venous blood specimen / Unknown Venipuncture / Unknown 01/20/2025 3:34 PM EST 01/20/2025 3:34 PM EST Christian Gibbons NP LAB BLOOD ORDERABLES Final R esult Performing Organization Address [facility] de Phone Number [facility] [address] [place] [address], [place] [phone] * HIV 1,2 antibody, p24 antigen with reflex to differentiation (01/20/2025 3:34 PM EST) [facility] HIV Combo AB/AG Negative Negative LAB CHEMISTRY METHOD 01/20/2025 7:39 PM EST [facility] Blood Venous blood specimen / Unknown Venipuncture / Unknown 01/20/2025 3:34 PM EST 01/20/2025 3:34 PM EST Narrative [facility] - 01/20/2025 7:39 PM EST This assay is a 4th generation assay allowing for earlier detection of HIV infection by detecting the presence of the HIV-1 p24 antigen as well as the traditional antibodies to HIV type 1 (including group O) and type 2. Use of a 4th generation assay is the current CDC recommendation for HIV screening. Christian Gibbons [employer] LAB BLOOD ORDERABLES Final R esult Performing Organization Address [facility]/ZIP Co de Phone Number [facility] [address] [place] [address], [place] [phone] * Lipid panel with reflex to direct LDL (01/20/2025 3:34 PM EST) Cholesterol 156 0 - 200 mg/dL LAB CHEMISTRY METHOD 01/20/2025 7:18 PM EST [facility] Triglycerides 94 0 - 150 mg/dL LAB CHEMISTRY METHOD 01/20/2025 7:18 PM EST [facility] HDL 46 >=40 mg/dL LAB CHEMISTRY METHOD 01/20/2025 7:18 PM EST [facility] LDL Calculated 91 0 - 100 mg/dL LAB CHEMISTRY METHOD 01/20/2025 7:18 PM EST [facility] VLDL Cholesterol Hayden 18.8 mg/dL LAB CHEMISTRY METHOD 01/20/2025 7:18 PM EST [facility] Non HDL Chol. (LDL+VLDL) 110 <145 mg/dL LAB CHEMISTRY METHOD 01/20/2025 7:18 PM EST [facility] Chol/HDL Ratio 3.4 0.0 - 4.4 LAB CHEMISTRY METHOD 01/20/2025 7:[address] 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
--- OUTSIDE RECORDS SUMMARY | 2025-07-24 21:35 | XMS_ITS | Clinical Summary ---
Author Organization [facility] Address [address] [place] [address] Care Team Providers Care Wrister Name Role Phone Unavailable Primary Care Provider Unavailabl e Allergies No known active allergies Social History Tobacco Use Types Packs/Day Years Used Date Smoking Tobacco: Never Assessed Sex and Gender Information Value Date Recorded Sex Assigned at Not on file Gender Identity Not on file Sexual Orientation Not on file Job Start Date Occupation Industry Not on file Not on file Not on file Last Filed Vital Signs Vital Sign Reading Time Taken Comments Blood Pressure 135/85 07/06/2024 3:58 PM EDT Pulse 106 07/06/2024 3:58 PM EDT Temperature 37.2 C (99 F) 07/06/2024 3:58 PM EDT Respiratory Rate 16 07/06/2024 3:58 PM EDT Oxygen Saturation 99% 07/06/2024 3:58 PM EDT Inhaled Oxygen Concentration - - Weight 96.2 kg (212 lb) 07/06/2024 3:58 PM EDT Height 177.8 cm (5' 10 ) 07/06/2024 3:58 PM EDT Body Mass Index 30.42 07/06/2024 3:58 PM EDT Plan of Treatment Health Maintenance Due Date Last Done Comments COVID-19 Vaccine (#1) 03/05/1999 Depression Screening 2010 BMI Counseling 2016 Preventative Health Evaluation 2016 DTap / Tdap / Td (1 - Tdap) 2017 Influenza Vaccine (#1) 2025 , 09/03/2019, 11/08/2018 Hepatitis B Vaccines Completed 07/06/1999, 1998, 1998 Hepatitis C Screening Completed 09/22/2021 Pneumococcal Vaccine Aged Out No long er eligible based on patient's age to complete this topic RSV Ped < 20 months Aged Out No longe r eligible based on patient's age to complete this topic José Antonio Page Jr. Personal/Family Self 2000 [address] [place] [address]
--- OUTSIDE RECORDS SUMMARY | 2025-07-24 21:35 | XMS_ITS ---
Author Name [facility] Organization Unknown Problems Problem Status Onset Date Problem Type Date of Resoluti on Source Difficulty urinating active EncounterDiagnosisAct CTTHNE MG Care Team Organization Name Specialty Phone Email Start Date End Da te [facility] Ren Caicedo Primary Care 02/06/202507/2025
--- NOTE | 2025-07-24 21:52 | ED.LOWEXIN ---
HPI - Extremity Injury (Lower) General Chief Complaint: Extremity Injury, Lower Stated Complaint: left knee inj Time Seen by Provider: 07/24/25 21:51 Source: patient Mode of arrival: ambulatory Limitations: no limitations History of Present Illness ED Provider: Leroy DEAL HPI Narrative: The patient is a 24-year-old male presenting to the ED for evaluation, we will have knee pain which began this evening after he slipped on wet floor at a local business around 18:30. The patient denies previous injury or surgery of the left knee. Patient reports since that time he has been experiencing pain in the posterior anteromedial aspect of the left knee increased with weight-bearing and radiating into the his left low back. The patient denies head strike or LOC. The patient denies prodrome prior to or following the injury. Related Data Previous Rx's ?Medication ?Instructions ?Recorded acetaminophen 500 mg capsule 1,000 mg (2 x 500 mg) PO .q8 PRN 07/24/25 fever or pain #30 caps ibuprofen 600 mg tablet 600 mg PO Q8H PRN fever or pain 07/24/25 #30 tabs Allergies Allergy/AdvReac Type Severity Reaction Status Date / Time Penicillins Allergy Anaphylaxis Verified 07/24/25 19:57 Review of Systems Review of Systems: Yes all other systems are reviewed and are negative PMFSH Social History Social History Advance Directives: No Physical Exam Vital Signs: Vital Signs: Last Vital Signs Temp 97.7 F 07/24/25 19:55 Pulse 79 07/24/25 19:55 Resp 16 07/24/25 19:55 BP 141/65 H 07/24/25 19:55 Pulse Ox 98 07/24/25 19:55 O2 Del Method Nasal Cannula 07/24/25 19:55 BMI result Body Mass Index 34.1 CONSTITUTIONAL: The patient appears non-toxic, well nourished and in no acute distress. Vital signs as documented. HEAD: Atraumatic, normocephalic. EYES: EOMs grossly intact, pupils equal, conjunctiva clear, no exudate. ENT: Nares patent, no discharge. Airway patent, no audible stridor, visible mucosa is pink and moist without noted lesions. NECK: trachea is midline, no obvious masses or gross abnormalities. CHEST: Symmetric movement, normal appearance. LUNGS: Non-labored work of breathing. CARDIAC: No evidence of hypoperfusion. ABDOMEN: Nondistended, no obvious injury. : Deferred. EXTREMITIES: Exam of the left knee demonstrates no ligament laxity or significant pain elicited with ligamentous strain, there is pain elicited with Luis's test of the medial meniscus. Extensor mechanism is intact. Distal CSM is intact, 2+ DP/PT pulses. Moves all other extremities spontaneously without reported pain. No other obvious injury or deformity noted. NEURO: Alert and oriented x3, CN II-XII appear grossly intact. Cerebellar Functioning grossly intact. Speech clear and appropriate. SKIN: Warm, dry, color appropriate. No rashes or lesions noted. Medical Decision Making Medical Decision Making MDM Narrative: 10:16 PM 07/24/2025 (Graciela DEAL): The patient is a 24-year-old male presenting to the ED for evaluation, we will have knee pain which began this evening after he slipped on wet floor at a local business around 18:30. The patient denies previous injury or surgery of the left knee. Patient reports since that time he has been experiencing pain in the posterior anteromedial aspect of the left knee increased with weight-bearing and radiating into the his left low back. The patient denies head strike or LOC. The patient denies prodrome prior to or following the injury. On exam the patient has no ligament laxity or significant pain elicited with ligamentous strain, there is pain elicited with Luis's test of the medial meniscus, concerning for possible meniscal injury. Extensor mechanism is intact. Distal CSM is intact, 2+ DP/PT pulses. Patient's x-ray shows no evidence of acute fracture. Patient will be treated with ibuprofen, Tylenol, lidocaine patch, knee immobilizer, and crutches. Patient will be discharged with orthopedic referral. Admission/Observation Consideration of admission/observation: Escalation of care including admission/observation considered Independent Interpretation I performed an independent interpretation of an: Plain X-Ray Radiology Impression Discussion of test interpretation with radiology: I have reviewed the radiologist's reading. Radiologist Impression: CLINICAL HISTORY: pain post fall 4 view left knee Comparison: None provided Findings: Bones intact. No dislocations. No significant loss of joint space, osteophytes, or erosions. No joint effusion. No radiopaque foreign body. IMPRESSION: 1. No acute findings. This document has been electronically signed by: Mamadou Curran MD on 07/24/2025 20:28:07 External Record Review External record reviewed: Outpatient record Prescription Management I considered prescription management with: Pain Medication Discharge Plan Discharge Clinical Impression: Internal derangement of left knee Patient Disposition: Home, Self-Care Instructions: Knee Sprain (ED), Meniscus Tear (ED) Additional Instructions: Thank you for choosing [facility]'s Emergency Department for your care today. At this time there is no indication for admission to the hospital or continued ED observation, and it is safe to discharge you home. Thankfully your x-ray today shows no evidence of acute fracture or effusion of your knee. Your exam is concerning for a possible meniscal injury. Please use the knee immobilizer and crutches to remain non-weightbearing until follow up with the orthopedic clinic. You may remove the knee immobilizer when showering, please however use a chair to sit while showering when not wearing the brace to avoid recurrent fall and injury. Please call the orthopedic clinic tomorrow to schedule a follow up appointment for reassessment and additional intervention or evaluation as indicated. You may take alternating (staggered) doses of ibuprofen 600mg and Tylenol 1000mg every 4 hours as needed for any additional pain. Please rest the injured area, and apply ice for 20 minutes every hour. We have treated you with a lidocaine patch, if you find this provides you significant relief additional patches can be purchased at any local pharmacy without a prescription. Please follow up with your primary care physician for re-evaluation, additional management of your symptoms, and continued preventative care. If you do not have a primary care physician, please call the [facility] at [phone] to establish a new primary care physician. While waiting to establish your new primary care physician, you can call our Walk-in Care Clinic at [phone] for non-emergency needs. Please return to the emergency department if you develop a severe or sudden change in your symptoms, a fever over 100.4 that does not improve with Tylenol or Ibuprofen, recurrent vomiting, or any other new or worsening symptoms or concerns. Prescriptions: New ibuprofen 600 mg tablet 600 mg PO Q8H PRN (Reason: fever or pain) Qty: 30 0RF acetaminophen 500 mg capsule 1,000 mg PO .q8 PRN (Reason: fever or pain) Qty: 30 0RF Referrals: [facility] [Provider Group] Clinical Impression: Internal derangement of left knee Rosy Yu MD [Primary Care Provider, Internal Medicine] Clinical Impression: Internal derangement of left knee Stand Alone Forms: Work/School Release Print Language: Romanian
[2025-07-24] MEDS: Lidocaine 4 % Patch ADH..PATCH 1 PATCH TRANSDERMA (22:20)
[2025-07-24 22:59] VITALS: BP 141/65; PULSE 79; RESP 16; TEMP 36.5; O2SAT 98
== END 2025-07-24 23:00 | disposition home or self-care (01) ==
PROVIDERS: Emergency Provider Emergency Medicine; PCP Internal Medicine
DX: M23.92 Unspecified internal derangement of left knee (principal); M54.50 Low back pain, unspecified; W01.0XXA Fall on same level from slipping, tripping and stumbling without subsequent striking against object, initial encounter; Y93.89 Activity, other specified; Y92.512 Supermarket, store or market as the place of occurrence of the external cause; Y99.8 Other external cause status
CPT/HCPCS: 73564; 99283

== ENCOUNTER → 2025-07-24 20:12 | Outpatient (BNV) | payer OTHER, SELFPAY | PROVIDERS: PCP Internal Medicine; Visit Provider Radiology Diagnostic Radiology | DX: M25.562 Pain in left knee (principal) | CPT/HCPCS: 73564 ==

== ENCOUNTER 2025-08-12 08:08 | Outpatient (REF) | payer OTHER, SELFPAY ==
--- OUTSIDE RECORDS SUMMARY | 2025-08-08 10:00 | XMS_ITS | Encounter Summary ---
Author Organization [facility] Address [address] [place] [address] Care Team Providers Care Sample Card Maker Name Role Phone Rosy Yu MD Primary Care Provider [phone] Reason for Visit * Reason Comments Pain Injury Consult * Consultation (Urgent) - Closed Specialty Diagnoses / Procedures Referred By Contact Referred To Contact Orthopaedics / Orthopaedic Surgery Diagnoses Acute pain of left knee Rosy Yu MD [address] [place] [id number] Phone: tel: fax: Hipolito Vieyra PA [address] [place] [phone] Phone: tel: fax: Referral ID Status Reason Start Date Expiration Date V isits Requested Visits Authorized [id number] Closed Specialty Services Required 07/31/2025 07/31/2026 1 1 Encounter Details Date Type Department Care Team (Late st Contact Info) Description 08/08/2025 10:00 AM EDT Consult Orthopedics - [address] [phone] Hipolito Vieyra PA [address] [place] [phone] Contusion of left knee, initial encounter (Primary Dx); Acute pain of left knee Social History Tobacco Use Types Packs/Day Years [...] care for your loved ones. For example, children's choir director or elderly care for an older adult? [...] on file Sexual Orientation Not on file documented as of this encounter Last Filed Vital Signs Vital Sign Reading Time Taken Comments Blood Pressure - - Pulse - - Temperature - - Respiratory Rate 16 08/08/2025 10:07 AM EDT Oxygen Saturation - - Inhaled Oxygen Concentration - - Weight 103 kg (228 lb) 08/08/2025 10:07 AM EDT Height 175.3 cm (5' 9 ) 08/08/2025 10:07 AM EDT Body Mass Index 33.67 08/08/2025 10:07 AM EDT documented in this encounter Ordered Prescriptions Prescription Sig Dispense Quantity Refills Last Filled Start Date End Date ibuprofen (ADVIL,MOTRIN) 800 mg tabletIndications: Acute pain of left knee Take 1 tablet (800 mg total) by mouth every 8 (eight) hours if needed for mild pain or moderate pain. 90 tablet 08/08/2025 documented in this encounter Progress Notes * SAY Sutton - 08/08/2025 10:00 AM EDT CHIEF COMPLAINT: Pain, Injury, and Consult of the Left Knee had concerns including Pain, Injury, and Consult of the Left Knee. IDENTIFIER: José Antonio Page is a 24 y.o. old male. HPI: José Antonio Page is here for evaluation of left knee injury. Patient slipped on a wet floor [facility] weeks ago. He fell directly back to left knee. Had pain and swelling and difficulty ambulating seen in the emergency room. In the emergency room x-rays were negative. He is in a brace. The meantime his PCP is on MRI he feels like he benefits less pain most localized to the anterior kneethere is a shooting pains down the posterior aspect of the thigh calf. ROS: GENERAL: No malaise, significant weight loss or fever HEENT: No changes in hearing or vision, nose bleeds or other nasal problems NECK: No lumps, goiter, pain or significant neck swelling RESPIRATORY: No cough, wheezing or shortness of breath CARDIOVASCULAR: No chest pain, leg swelling or palpitations GI: No abdominal discomfort, blood in stools or black stools : No dysuria, frequency or incontinence MUSCULOSKELETAL: See HPI . SKIN: No lesions, rash or itching NEURO: No persistent headache, syncope, seizures, weakness or numbness Remainder of systems noncontributory. PHYSICAL EXAM: Vitals: 08/08/25 1007 Resp: 16 Weight: 103 kg (228 lb) Height: 1.753 m (69 ) Examination of the left knee demonstrates no visible swelling. Spondylosis. No obvious ability. There is tenderness overlying anterior knee with some more generalized tenderness as well . patient cantolerate extension of the knee with some effort and pain. Can flex to 90 degrees. He ambulates withslight limp LABS/IMAGING: Xrays reviewed: Images of x-rays reviewed from [facility] are unremarkable IMPRESSION: 1. Contusion of left knee, initial encounter 2. Acute pain of left knee José Antonio was seen today for pain, injury and consult. Diagnoses and all orders for this visit: 1. Contusion of left knee, initial encounter 2. Acute pain of left knee - Ambulatory referral to Orthopedic Surgery - ibuprofen; Take 1 tablet (800 mg total) by mouth every 8 (eight) hours if needed for mild pain ormoderate pain. PLAN: 1. Acute pain of left knee - Ambulatory referral to Orthopedic Surgery - ibuprofen (ADVIL,MOTRIN) 800 mg tablet; Take 1 tablet (800 mg total) by mouth every 8 (eight) hours if needed for mild pain or moderate pain. Dispense: 90 tablet; Refill: 0 2. Contusion of left knee, initial encounter (Primary) This appears to be a contusion of the left knee. There may be further underlying injury particular to meniscus. He has a MRI scheduled to review as available. Advise anti-inflammatories analgesics ice and elevating of the motion. Following muscle review Reingold available No orders of the defined types were placed in this encounter. The details of the visit were reviewed with the patient. Pertinent history, and objective findings were reviewed, along with the diagnoses: José Antonio Page acknowledges understanding of the above plan and agrees to follow recommendations and/or take medications as prescribed. Follow up in about 4 weeks (around 09/05/2025). PAST MEDICAL HISTORY: Patient Active Problem List Diagnosis Date Noted Obesity (BMI 30-39.9) 07/31/2025 Class 1 obesity due to excess calories with body mass index (BMI) of 33.0 to 33.9 in adult 05/06/2025 Primary hypertension 05/06/2025 History of cold sores 05/06/2025 Diarrhea 05/06/2025 Urine retention 01/20/2025 abstinence symptoms (CMS/HCC V28) 01/20/2025 No past surgical history on file. SOCIAL HISTORY: Social History Tobacco Use Smoking status: Not on file Smokeless tobacco: Not on file Substance Use Topics Alcohol use: Not on file FAMILY HISTORY: No family history on file. MEDICATIONS DISCONTINUED/REORDERED: There are no discontinued medications. ACTIVE MEDICATIONS: Outpatient Medications Marked as Taking for the 08/08/25 encounter (Consult) with SAY Sutton Medication Sig Dispense Refill amLODIPine (NORVASC) 2.5 mg tablet Take 1 tablet (2.5 mg total) by mouth 1 (one) time each day. 90 each 1 ibuprofen (ADVIL,MOTRIN) 800 mg tablet Take 1 tablet (800 mg total) by mouth 3 (three) times a day if needed for mild pain (pain). 180 tablet 3 Pain Reliever, acetaminophen, 500 mg tablet Take 1 tablet (500 mg total) by mouth every 8 (eight) hours if needed for fever - temperature GREATER than 38 C (100.4 F), headaches, moderate pain or mildpain. ZOLMitriptan (ZOMIG) 2.5 mg tablet Take 1 tablet (2.5 mg total) by mouth 1 (one) time if needed formigraine. May repeat once after 2 hours. 18 tablet 3 ALLERGIES: Allergies Allergen Reactions Trent Flavor Hives Penicillins Penicillin Rash SAY Sutton documented in this encounter Plan of Treatment Upcoming Encounters Date Type Department Care Team (Late st Contact Info) Description 08/21/2025 2:00 PM EDT Office Visit [facility] [place] [address] [place] [phone] Jenny Victoria PA [address] [place] [address] 12/09/2025 4:30 PM EST Office Visit Adult Medicine [address] [phone] Rosy Yu MD [address] [place] [phone] 01/07/2026 8:20 AM EST Consult Gastroenterology - [place] [address] [place] [phone] Stephanie Katz, SYDNEE [address] [facility] [address] [place] [address] documented as of this encounter Visit Diagnoses Diagnosis Contusion of left knee, initial encounter- Primary Acute pain of left knee documented in this encounter Orders Outpatient Referral Count Last Ordered Date Fir st Ordered Date AMB REFERRAL TO ORTHOPEDIC SURGERY 1 2024 documented in this encounter Additional Health Concerns Infection Onset Date Last Indicated Resolved Time Herpes simplex 05/13/2025 05/13/2025 Assessment Noted Time PHQ-9 Depression Total Score: 0 02/27/20 2:18 PM EDT documented as of this encounter Care Teams Sample Card Maker Relationship Specialty Start Date End Date Rosy Yu MD [address] [place] [id number] PCP - General Internal Medicine 01/20/25 documented as of this encounter
--- OUTSIDE RECORDS SUMMARY | 2025-08-13 08:36 | XMS_ITS | Clinical Summary ---
Author Organization [facility] Address [address] [place] [address] Care Team Providers Care Production Inspector Name Role Phone Unavailable Primary Care Provider [...] Personal/Family Self 2000 [address] [place] [address]
--- OUTSIDE RECORDS SUMMARY | 2025-08-13 08:36 | XMS_ITS | Clinical Summary ---
Author Organization Patient Business Ser [facility] Address [address] [place] [address] Care Team Providers Care Vascular Technologist Name Role Phone Rosy Yu MD Primary Care Provider Allergies Active Allergy Reactions Criticality Noted Date Comments Justin Flavor Hives High 09/05/2019 Penicillin Rash Low 07/17/2024 Penicillins 06/10/2007 Medications ZOLMitriptan (ZOMIG) 2.5 mg tablet Take 1 tablet (2.5 mg total) by mouth 1 (one) time if needed for migraine. May repeat once after 2 hours. 18 tablet 3 5 026 Active amLODIPine (NORVASC) 2.5 mg tablet Take 1 tablet (2.5 mg total) by mouth 1 (one) time each day. 90 each 1 5 026 Active ibuprofen (ADVIL,MOTRIN) 800 mg tablet Take 1 tablet (800 mg total) by mouth 3 (three) times a day if needed for mild pain (pain). 180 tablet 3 5 026 Active traMADoL (ULTRAM) 50 mg tablet Take 1 tablet (50 mg total) by mouth every 6 (six) hours if needed for severe pain or moderate pain. 4 Active chlorhexidine (PERIDEX) 0.12 % solution 5 Active Pain Reliever, acetaminophen, 500 mg tablet Take 1 tablet (500 mg total) by mouth every 8 (eight) hours if needed for fever - temperature GREATER than 38 C (100.4 F), headaches, moderate pain or mild pain. 5 Active ibuprofen (ADVIL,MOTRIN) 800 mg tabletIndicati ons:Acute pain of left knee Take 1 tablet (800 mg total) by mouth every 8 (eight) hours if needed for mild pain or moderate pain. 90 tablet 5 Active amLODIPine (NORVASC) 2.5 mg tablet Take 1 tablet (2.5 mg total) by mouth 1 (one) time each day. 90 each 5 025 Discontinu ed(Reorder ) methylPREDNISo lone (MEDROL DOSPAK) 4 mg tablet Take as directed on package. 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 Encounters Date Type Department Care Team Description 08/12/2025 Telephone Orthopedic Surgery - [address] [phone] Maddie Boyd 08/08/2025 10:00 AM EDT Consult Orthopedics [address] [phone] Hipolito Vieyra PA Contusion of left knee, initial encounter (Primary Dx); Acute pain of left knee 08/06/2025 2:30 PM EDT Consult Infectious Disease [facility] [address] [phone] Rochelle Lackey MD Irritable bowel syndrome with diarrhea (Primary Dx); Chronic diarrhea; History of Clostridioides difficile infection 07/31/2025 11:00 AM EDT Office Visit Adult Medicine [address] [phone] Rosy Yu MD Primary hypertension (Primary Dx); Acute pain of left knee; Obesity (BMI 30-39.9) 06/06/2025 2:30 PM EDT Office Visit [address] [phone] Rosy Yu MD Muscle spasm (Primary Dx); Primary hypertension; Family history of hemochromatosis; Obesity (BMI 30-39.9); C. difficile diarrhea; Elevated total protein; Hyperphosphatemia 06/05/2025 9:26 AM EDT - 06/05/2025 11:59 PM EDT Hospital Encounter [facility] [address] [place] [phone] Other dysphagia; Sensation of lump in throat; Dysuria Discharge Disposition: Home or Self Care 06/03/2025 Telephone Infectious Disease - [place] [address] [phone] Shakila Stanley MA 05/27/2025 3:39 PM EDT - 05/27/2025 11:59 PM EDT Hospital Encounter Radiology Department - [address] [phone] Nonintractable chronic migraine Discharge Disposition: Home or Self Care from Last 3 Months Social History Tobacco [...] care for your loved ones. For example, child & adolescent psychiatrist or elderly care for an older adult? [...] Sign Reading Time Taken Comments Blood Pressure 109/76 08/06/2025 2:24 PM EDT Pulse 95 08/06/2025 2:24 PM EDT Temperature 36.2 C (97.2 F) 08/06/2025 2:24 PM EDT Respiratory Rate 16 08/08/2025 10:07 AM EDT Oxygen Saturation 98% 08/06/2025 2:24 PM EDT Inhaled Oxygen Concentration - - Weight 103 kg (228 lb) 08/08/2025 10:07 AM EDT Height 175.3 cm (5' 9 ) 08/08/2025 10:07 AM EDT Body Mass Index 33.67 08/08/2025 10:07 AM EDT Plan of Treatment Upcoming Encounters Date Type Department Care Team (Late st Contact Info) Description 08/21/2025 2:00 PM EDT Office Visit [facility] [place] 175 [facility] [address] [place] [phone] Jenny Victoria PA 175 [facility] [address] [place] [address] 12/09/2025 4:30 PM EST Office Visit Adult Medicine [facility] [address] [place] [phone] Rosy Yu MD [address] [place] [address] 01/07/2026 8:20 AM EST Consult Gastroenterology - [place] 175 [facility] 175 [facility] [address] [place] [phone] Stephanie Katz NP 175 [facility] [address] [place] [address] Health Maintenance Due Date Last Done Comments Influenza Vaccine (#1) 2025 , 09/03/2019, 11/08/2018 Social Influencers of Health Screening 02/26/2026 02/26/2025 Hypertension/CHF/CAD Annual BMP Blood Test 06/06/2026 06/06/2025, 05/13/2025, 01/20/2025, Additional history exists DTaP,Tdap,and Td Vaccines (7 - Td or Tdap) 09/16/2028 09/16/2018, 07/07/2010, 10/14/2002, Additional history exists Cholesterol Screening (Lipid Panel) 01/20/2030 01/20/2025, 09/22/2021 RSV Immunization Adult Patients (1 - 1-dose 75+ series) 2073 Hepatitis B Vaccines Completed 07/06/1999, 1998, 1998 [...] Procedure Name Priority Date/Time Associated Diagnosis Comments EXTERNAL XRAY REPORT Routine 07/24/2025 2:04 PM EDT HERNANDEZ URINE CULTURE TUBE Routine 06/06/20 4:48 [...] dysphagia Sensation of lump in throat Dysuria ELECTRONIC ENGINEERING DRAFTSPERSON VIDEOFLUOROSCOPIC SWALLOW STUDY WITH BARIUM Routine 06/05/2025 [...] Recently Relevant to Health Maintenance Results * External Xray Report (07/24/2025 2:04 PM EDT) Anatomical Region Laterality Modality Radiographic Radha ging us Historical Provider MD PARIKH XR PROCEDURES Final R esult * Hernandez urine culture tube (06/06/2025 4:48 PM EDT) Extra Tube Hold for add-ons. 06/06/2025 7:01 PM EDT [facility] Comment:Auto resulted. Urine Urine specimen obtained by clean catch procedure / Unknown 06/06/2025 4:48 PM EDT 06/06/2025 4:48 PM EDT us Christian Gibbons LIVE IN COMPANION LAB URINE ORDERABLES Final R esult [facility] [address] [place] [address], [place] [phone] * Urinalysis with reflex microscopic and culture (06/06/2025 4:39 PM EDT) Specific Parrish Urine 1.016 1.003 - 1.030 LAB URINALYSIS - AUTOMATED METHOD 06/06/2025 6:51 PM EDT [facility] pH, Urine 7.0 5.0 - 8.0 pH LAB URINALYSIS - AUTOMATED METHOD 06/06/2025 6:51 PM EDT [facility] Leukocytes, Urine Negative Negative LAB URINALYSIS - AUTOMATED METHOD 06/06/2025 6:51 PM EDT [facility] Nitrite, Urine Negative Negative LAB URINALYSIS - AUTOMATED METHOD 06/06/2025 6:51 PM EDT [facility] Protein, Urine Negative <=Trace mg/dL LAB URINALYSIS - AUTOMATED METHOD 06/06/2025 6:51 PM EDT [facility] Glucose, Urine Negative Negative mg/dL LAB URINALYSIS - AUTOMATED METHOD 06/06/2025 6:51 PM EDT [facility] Ketones, Urine Negative Negative mg/dL LAB URINALYSIS - AUTOMATED METHOD 06/06/2025 6:51 PM EDT [facility] Urobilinogen, Urine 0.2 0.2 - 1.0 mg/dL LAB URINALYSIS - AUTOMATED METHOD 06/06/2025 6:51 PM EDT [facility] Bilirubin, Urine Negative Negative LAB URINALYSIS - AUTOMATED METHOD 06/06/2025 6:51 PM EDT [facility] Blood, Urine Negative Negative LAB URINALYSIS - AUTOMATED METHOD 06/06/2025 6:51 PM EDT [facility] Urine Urine specimen obtained by clean catch procedure / Unknown Non-blood Collection / Unknown 06/06/2025 4:39 PM EDT 06/06/2025 4:39 PM EDT us Christian Gibbons LIVE IN COMPANION LAB URINE ORDERABLES Final R esult [facility] [address] [place] [address], * Hemochromatosis mutation (06/06/2025 4:39 PM EDT) [...] clinical information reviewed by Daksha Robles, PhD, [facility]. DETAILED ASSAY INFORMATION: Hereditary hemochromatosis (HH) is [...] variants in the HFE gene, C282Y (NM 735075.2: c.845G>A, p.[id number]) and H63D (NM 026464.2: c.187C>G, p.[id number]), that are commonly associated with HH. These [...] Health care providers, please contact your local [facility]' genetic counselor or call [phone] ( ) for assistance with the interpretation of these results. This test was developed and its analytical performance characteristics have been determined by [facility]. It has not been cleared or approved by FDA. This assay has been validated pursuant to the CLIA regulations and is used for clinical purposes. For more information, please refer to http://education.[employer]/faq/hemochromatosis. (This link is being provided for informational/educational purposes only.) A portion of the testing was performed at [facility]. Reviewed and signed by Laboratory results and submitted clinical information reviewed by Daksha Robles, PhD, [facility], Signed on 06/16/2025 at 23:48 Test Performed at: [facility] [address] [address] Rain Cordero MD, PhD, [facility] Blood Venous blood specimen / Unknown Venipuncture / Unknown 06/06/2025 4:39 PM EDT 06/06/2025 4:39 PM EDT us Rosy Yu MD LAB MOLECULAR DIAGNOSTICS O RDERABLES Final Result [facility] [address] [place] [address] * (ABNORMAL) Phosphorus (06/06/2025 4:39 PM EDT) Phosphorus 4.8(H) 2.5 - 4.5 mg/dL LAB CHEMISTRY METHOD 06/06/2025 7:22 PM EDT [facility] Blood Venous blood specimen / Unknown Venipuncture / Unknown 06/06/2025 4:39 PM EDT 06/06/2025 4:39 PM EDT us Rosy Yu MD LAB BLOOD ORDERABLES Final Result Performing Organization Address City/[facility]/ZIP Co de Phone Number [facility] [address] [place] [address], [place] [phone] * Magnesium (06/06/2025 4:39 PM EDT) Pathologist [facility] Magnesium 2.2 1.9 - 2.6 mg/dL LAB CHEMISTRY METHOD 06/06/2025 7:22 PM EDT [facility] Blood Venous blood specimen / Unknown Venipuncture / Unknown 06/06/2025 4:39 PM EDT 06/06/2025 4:39 PM EDT Rosy Yu MD LAB BLOOD ORDERABLES Final Result Performing Organization Address [facility]/ZIP Co de Phone Number [facility] [address] [place] [address], [place] [phone] * Creatine kinase (06/06/2025 4:39 PM EDT) Total CK 142 22 - 269 unit/L LAB CHEMISTRY METHOD 06/06/2025 7:22 PM EDT [facility] Blood Venous blood specimen / Unknown Venipuncture / Unknown 06/06/2025 4:39 PM EDT 06/06/2025 4:39 PM EDT us Rosy Yu MD LAB BLOOD ORDERABLES Final Result [facility] [address] [place] [address], [place] [phone] * (ABNORMAL) Comprehensive metabolic panel (06/06/2025 4:39 PM EDT) Only the most recent of2 resultswithin the time period is included. Sodium 139 133 - 145 mmol/L LAB CHEMISTRY METHOD 06/06/2025 7:30 PM [facility] Potassium 3.8 3.5 - 5.5 mmol/L LAB CHEMISTRY METHOD 06/06/2025 7:30 PM [facility] Chloride 101 96 - 110 mmol/L LAB CHEMISTRY METHOD 06/06/2025 7:30 PM [facility] CO2 28 21 - 32 mmol/L LAB CHEMISTRY METHOD 06/06/2025 7:30 PM [facility] Anion Gap 10 3 - 11 LAB CHEMISTRY METHOD 06/06/2025 7:30 PM [facility] Glucose 78 70 - 100 mg/dL LAB CHEMISTRY METHOD 06/06/2025 7:30 PM [facility] BUN 10 5 - 25 mg/dL LAB CHEMISTRY METHOD 06/06/2025 7:30 PM [facility] Creatinine 0.90 0.70 - 1.30 mg/dL LAB CHEMISTRY METHOD 06/06/2025 7:30 PM [facility] eGFR 121 >=60 mL/min/1. 73m2 LAB CHEMISTRY METHOD 06/06/2025 7:30 PM [facility] Comment:Calculation based on the Chronic Kidney Disease Epidemiology Collaboration (CKD-EPI) equation refit without adjustment for race. BUN/Creatinine Ratio 11.1 LAB CHEMISTRY METHOD 06/06/2025 7:30 PM [facility] Calcium 10.1 8.5 - 10.5 mg/dL LAB CHEMISTRY METHOD 06/06/2025 7:30 PM [facility] AST (SGOT) 23 10 - 42 unit/L LAB CHEMISTRY METHOD 06/06/2025 7:30 PM [facility] ALT (SGPT) 57 10 - 60 unit/L LAB CHEMISTRY METHOD 06/06/2025 7:30 PM EDT [facility] Alkaline Phosphatase 99 42 - 121 unit/L LAB CHEMISTRY METHOD 06/06/2025 7:30 PM EDT [facility] Total Protein 8.2(H) 6.0 - 8.0 g/dL LAB CHEMISTRY METHOD 06/06/2025 7:30 PM EDT [facility] Albumin 5.1(H) 3.2 - 5.0 g/dL LAB CHEMISTRY METHOD 06/06/2025 7:30 PM EDT [facility] Total Bilirubin 0.7 0.0 - 1.4 mg/dL LAB CHEMISTRY METHOD 06/06/2025 7:30 PM EDT [facility] Blood Venous blood specimen / Unknown Venipuncture / Unknown 06/06/2025 4:39 PM EDT 06/06/2025 4:39 PM EDT us Rosy Yu MD LAB BLOOD ORDERABLES Final Result [facility] [address] [place] [address], * XR Barium Swallow with Video and [...] Signed Date: 06/05/2025 12:20 ET Workstation ID: [id number] Transcribed By: Self Edit Transcribed Date: 06/05/2025 10:54 ET Resident/PA/LIVE IN COMPANION: Analia Rogers Narrative 06/05/2025 12:20 PM EDT [...] Signed Date: 06/05/2025 12:20 ET Workstation ID: [id number] Transcribed By: Self Edit Transcribed Date: 06/05/2025 10:54 ET Resident/PA/LIVE IN COMPANION: Analia Rogers us Christian Gibbons LIVE IN COMPANION IMG FLUOROSCOPY PROCEDURES F inal Result * ELECTRONIC ENGINEERING DRAFTSPERSON videofluoroscopic swallow study with barium (06/05/2025 9:45 [...] RECOMMENDATIONS: Evaluation Only - No Additional Skilled ELECTRONIC ENGINEERING DRAFTSPERSON Needs Indicated at this time. Summary and Impressions: José Antonio Page is a 24 y.o. who presents with WNL Oropharyngeal Swallow Function on MBS today. No laryngeal penetration and no tracheal aspiration. Pharynx cleared of any residue. Discussed use of strategies when pt has episodes of fatigue. Pt also c/o misarticulations, new for patient. Pt has f/u with Neurology. Recommend ELECTRONIC ENGINEERING DRAFTSPERSON if warranted after work up. DATA MANAGEMENT REQUIRED: No GENERAL INFORMATION: Ordering Physician: Christian [...] of lump in throat [R09.A2] Dysuria [R30.0] ELECTRONIC ENGINEERING DRAFTSPERSON VIDEOFLUOROSCOPIC SWALLOW STUDY WITH BARIUM [[id number]] XR BARIUM SWALLOW WITH VIDEO AND SPEECH [[id number]] ALLERGIES: Allergies Allergen Reactions Penicillin Rash OBJECTIVE [...] Verbal Understanding, and Demonstrated Skills Janett Yousif, ELECTRONIC ENGINEERING DRAFTSPERSON 06/05/2025 Christian Gibbons NP ELECTRONIC ENGINEERING DRAFTSPERSON ORDERABLES Final Result * Gastrointestinal pathogens molecular study (05/28/2025 2:05 PM EDT) Campylobacter Detection by PCR Not Detected Not Detected LAB MICROBIOLOGY METHOD 5 6:03 PM EDT [facility] Plesiomonas shigelloides Detection by PCR Not Detected Not Detected LAB MICROBIOLOGY METHOD 5 6:03 PM EDT [facility] Salmonella Detection by PCR Not Detected Not Detected LAB MICROBIOLOGY METHOD 5 6:03 PM EDT [facility] Vibrio Detection by PCR Not Detected Not Detected LAB MICROBIOLOGY METHOD 5 6:03 PM EDT [facility] Vibrio cholerae Detection by PCR Not Detected Not Detected LAB MICROBIOLOGY METHOD 5 6:03 PM EDT [facility] Yersinia enterocolitica Detection by PCR Not Detected Not Detected LAB MICROBIOLOGY METHOD 5 6:03 PM EDT [facility] Enteroaggregative E coli EAEC Detection by PCR Not Detected Not Detected LAB MICROBIOLOGY METHOD 5 6:03 PM EDT [facility] Enteropathogenic E coli EPEC Detection Not Detected Not Detected LAB MICROBIOLOGY METHOD 5 6:03 PM [facility] Enterotoxigenic E coli ETEC LTST Detection Not Detected Not Detected LAB MICROBIOLOGY METHOD 5 6:03 PM [facility] Shiga-like toxin producing E coli STEC STX1 STX2 Det Not Detected Not Detected LAB MICROBIOLOGY METHOD 5 6:03 PM [facility] Shigella Enteroinvasive E coli EIEC Detection Not Detected Not Detected LAB MICROBIOLOGY METHOD 5 6:03 PM [facility] Cryptosporidium Detection by PCR Not Detected Not Detected LAB MICROBIOLOGY METHOD 5 6:03 PM [facility] Cyclospora cayetanensis Detection by PCR Not Detected Not Detected LAB MICROBIOLOGY METHOD 5 6:03 PM [facility] Entamoeba histolytica Detection by PCR Not Detected Not Detected LAB MICROBIOLOGY METHOD 5 6:03 PM [facility] Giardia lamblia Detection by PCR Not Detected Not Detected LAB MICROBIOLOGY METHOD 5 6:03 PM [facility] Adenovirus F 40 41 Detection by PCR Not Detected Not Detected LAB MICROBIOLOGY METHOD 5 6:03 PM [facility] Astrovirus Detection by PCR Not Detected Not Detected LAB MICROBIOLOGY METHOD 5 6:03 PM [facility] Norovirus GI GII Detection by PCR Not Detected LAB MICROBIOLOGY METHOD 5 6:03 PM [facility] Sapovirus Detection by PCR Not Detected Not Detected LAB MICROBIOLOGY METHOD 5 6:03 PM [facility] Rotavirus A Detection by PCR Not Detected Not Detected LAB MICROBIOLOGY METHOD 5 6:03 PM [facility] Stool Rectum structure / Unknown Non-blood Collection / Unknown 05/28/2025 2:05 PM EDT 05/28/2025 2:05 PM EDT [facility] - 05/28/2025 6:03 PM EDT [...] GENERAL ORDERABLES Final Result Performing Organization Address [facility]/ZIP Co de Phone Number [facility] [address] [place] [address], [place] [phone] * Ova and parasite examination (05/28/2025 2:05 PM EDT) Pathologist [facility] Ova and Parasite No Ova or Parasite seen. 06/02/2025 11:58 AM EDT [facility] Stool Rectum structure / Unknown Non-blood Collection / Unknown 05/28/2025 2:05 PM EDT 05/28/2025 2:05 PM EDT [facility] - 06/02/2025 11:58 AM EDT Special test request required for Coccidia and Microsporidia. Rosy Yu MD LAB MICROBIOLOGY - GENERAL ORDERABLES Final Result Performing Organization Address City/[facility]/ZIP Co de Phone Number [facility] [address] [place] [address], [place] [phone] * (ABNORMAL) Clostridium difficile molecular study (05/28/2025 2:05 PM EDT) Clostridium difficile PCR Positive (AA) Negative LAB MICROBIOLOGY METHOD 05/28/2025 6:32 PM EDT [facility] Comment: CRITICAL RESULT POSITIVE FOR TOXIN PRODUCING CLOSTRIDIOIDES DIFFICILE, NO ADDITIONAL TESTING IS NECESSARY. REPEAT SAMPLES SHOULD NOT BE SUBMITTED FOR TEST OF CURE. Stool Rectum structure / Unknown Non-blood Collection / Unknown 05/28/2025 2:05 PM EDT 05/28/2025 5:21 PM EDT Rosy Yu MD LAB MICROBIOLOGY - GENERAL ORDERABLES Final Result Performing Organization Address [facility]/ZIP Co de Phone Number [facility] [address] [place] [address], [place] [phone] * Clostridium difficile toxin (05/28/2025 2:05 PM EDT) C difficile Toxins A+B, EIA 05/28/2025 5:21 PM EDT [facility] Comment:Refer to C. difficil e PCR assay for results. Stool Rectum structure / Unknown Non-blood Collection / Unknown 05/28/2025 2:05 PM EDT 05/28/2025 2:05 PM EDT us Rosy Yu MD LAB MICROBIOLOGY - GENERAL ORDERABLES Final Result Performing Organization Address [facility] de Phone Number [facility] [address] [place] [address], [place] [phone] * MR Brain wo Contrast (05/27/2025 4:30 [...] Signed Date: 05/27/2025 16:37 ET Workstation ID: [id number] Transcribed By: Self Edit Transcribed Date: 05/27/2025 [...] Signed Date: 05/27/2025 16:37 ET Workstation ID: [id number] Transcribed By: Self Edit Transcribed Date: 05/27/2025 16:31 ET us Rosy Yu MD IM MRI PROCEDURES Final Re sult * Herpes simplex virus 1 and 2 molecular study, qualitative (05/13/2025 11:13 AM EDT) Specimen Source Blood - EDTA 05/16/2025 10:58 AM EDT [facility] Herpes simplex Virus I Not detected Not detected 05/16/2025 10:58 AM EDT [facility] Herpes simplex Virus II Not detected Not detected 05/16/2025 10:58 AM EDT [facility] Comment: This test utilizes a [...] of this procedure were determined by [facility]. This test is performed pursuant to a license agreement with [employer] Test performed at [facility], [address] , [place] [address] Leanne Velasquez MD, PhD - Contract Programmer Blood Venous blood specimen / Unknown Venipuncture / Unknown 05/13/2025 11:13 AM EDT 05/13/2025 11:13 AM EDT us Rosy Yu MD LAB MICROBIOLOGY - GENERAL ORDERABLES Final Result [facility] [address] [place] [address] * (ABNORMAL) Herpes simplex virus 1 and 2, IgG (05/13/2025 11:13 AM EDT) HSV 1 IgG 52.60(H) <=0.90 index aria LAB CHEMISTRY METHOD 05/13/2025 3:11 PM EDT [facility] HSV-1 IgG Interpretation Positive(A) Negative LAB CHEMISTRY METHOD 05/13/2025 3:11 PM EDT [facility] HSV 2 IgG 0.05 <=0.90 index aria LAB CHEMISTRY METHOD 05/13/2025 3:11 PM EDT [facility] HSV-2 IgG Interpretation Negative Negative LAB CHEMISTRY METHOD 05/13/2025 3:11 PM EDT [facility] Blood Venous blood specimen / Unknown Venipuncture / Unknown 05/13/2025 11:13 AM EDT 05/13/2025 11:13 AM EDT Rosy Yu MD LAB BLOOD ORDERABLES Final Result [facility] [address] [place] [address], [place] [phone] * Endomysial antibody, IgA (05/13/2025 11:13 AM EDT) Endomysial IgA Negative Negative 05/16/2025 10:43 AM EDT [facility] Blood Venous blood specimen / Unknown Venipuncture / Unknown 05/13/2025 11:13 AM EDT 05/13/2025 11:13 AM EDT Rosy Yu MD LAB BLOOD ORDERABLES Final Result Performing Organization Address City/[facility]/ZIP Co de Phone Number [facility] [address] [place] [address], [place] [phone] * (ABNORMAL) CBC auto differential (05/13/2025 11:13 AM EDT) WBC 8.9 4.8 - 10.8 K/mcL LAB HEMETOLOGY METHOD 05/13/2025 12:42 PM EDT [facility] RBC 5.70(H) 4.50 - 5.50 M/mcL LAB HEMETOLOGY METHOD 05/13/2025 12:42 PM EDT [facility] Hemoglobin 16.3 13.5 - 17.5 g/dL LAB HEMETOLOGY METHOD 05/13/2025 12:42 PM EDT [facility] Hematocrit 48.9 42.0 - 54.0 % LAB HEMETOLOGY METHOD 05/13/2025 12:42 PM EDT [facility] MCV 86.5 79.0 - 98.0 FL LAB HEMETOLOGY METHOD 05/[facility]25 [facility] MCH 28.8 27.0 - 32.0 pcg LAB HEMETOLOGY METHOD 05/13/2025 12:42 PM [facility] MCHC 33.3 32.0 - 37.0 g/dL LAB HEMETOLOGY METHOD 05/13/2025 12:42 PM EDT [facility] RDW 12.9 11.0 - 15.0 % LAB HEMETOLOGY METHOD 05/13/2025 12:42 PM [facility] Platelets 302 130 - 400 K/mcL LAB HEMETOLOGY METHOD 05/13/2025 12:42 PM [facility] MPV 9.2 7.0 - 11.0 FL LAB HEMETOLOGY METHOD 05/13/2025 12:42 PM [facility] NRBC 0.0 <1.0 % LAB HEMETOLOGY METHOD 05/13/2025 12:42 PM [facility] NRBC Absolute 0.00 <0.10 K/mcL LAB HEMETOLOGY METHOD 05/13/2025 12:42 PM [facility] Neutrophils Relative 60.9 % LAB HEMETOLOGY METHOD 05/13/2025 12:42 PM [facility] Lymphocytes Relative 28.4 % LAB HEMETOLOGY METHOD 05/13/2025 12:42 PM [facility] Monocytes Relative 8.4 % LAB HEMETOLOGY METHOD 05/13/2025 12:42 PM [facility] Eosinophils Relative 1.1 % LAB HEMETOLOGY METHOD 05/13/2025 12:42 PM [facility] Basophils Relative 0.6 % LAB HEMETOLOGY METHOD 05/13/2025 12:42 PM EDT [facility] Immature Granulocytes Relative 0.6 % LAB HEMETOLOGY METHOD 05/13/2025 12:42 PM EDT [facility] Neutrophils Absolute 5.43 1.50 - 7.00 K/mcL LAB HEMETOLOGY METHOD 05/13/2025 12:42 PM EDT [facility] Lymphocytes Absolute 2.53 1.00 - 5.00 K/mcL LAB HEMETOLOGY METHOD 05/13/2025 12:42 PM EDT [facility] Monocytes Absolute 0.75 0.20 - 1.00 K/mcL LAB HEMETOLOGY METHOD 05/13/2025 12:42 PM EDT [facility] Eosinophils Absolute 0.10 0.00 - 0.50 K/mcL LAB HEMETOLOGY METHOD 05/13/2025 12:42 PM [facility] Basophils Absolute 0.05 0.00 - 0.20 K/mcL LAB HEMETOLOGY METHOD 05/13/2025 12:42 PM EDT [facility] Immature Granulocytes Absolute 0.05(H) 0.00 - 0.03 K/mcL LAB HEMETOLOGY METHOD 05/13/2025 12:42 PM T [facility] Blood Venous blood specimen / Unknown Venipuncture / Unknown 05/13/2025 11:13 AM EDT 05/13/2025 11:13 AM EDT us Rosy Yu MD LAB BLOOD ORDERABLES Final Result [facility] [address] [place] [address], * Gliadin antibodies, serum (05/13/2025 11:13 AM EDT) Gliadin IgA 5 <20 units LAB CHEMISTRY METHOD 05/14/2025 11:56 AM EDT [facility] Gliadin IgG 1 <20 units LAB CHEMISTRY METHOD 05/14/2025 11:56 AM EDT [facility] Gliadin IgA Antibody Negative Negative LAB CHEMISTRY METHOD 05/14/2025 11:56 AM EDT [facility] Gliadin IgG Antibody Negative Negative LAB CHEMISTRY METHOD 05/14/2025 11:56 AM EDT [facility] Blood Venous blood specimen / Unknown Venipuncture / Unknown 05/13/2025 11:13 AM EDT 05/13/2025 11:13 AM EDT Rosy Yu MD LAB BLOOD ORDERABLES Final Result Performing Organization Address [facility]/ZIP Co de Phone Number [facility] [address] [place] [address], [place] [phone] * Tissue transglutaminase, IgA (05/13/2025 11:13 AM EDT) Tissue Transglutaminase Ab, IgA Quant 1 <4 unit/mL LAB CHEMISTRY METHOD 05/14/2025 11:59 AM EDT [facility] Tissue Transglutaminase Ab, IgA Negative Negative LAB CHEMISTRY METHOD 05/14/2025 11:59 AM EDT [facility] Blood Venous blood specimen / Unknown Venipuncture / Unknown 05/13/2025 11:13 AM EDT 05/13/2025 11:13 AM EDT Rosy Yu MD LAB BLOOD ORDERABLES Final Result [facility] [address] [place] [address], [place] [phone] * Immunoglobulin IgA (05/13/2025 11:13 AM EDT) IgA 134 61 - 348 mg/dL LAB CHEMISTRY METHOD 05/13/2025 3:29 PM EDT [facility] Blood Venous blood specimen / Unknown Venipuncture / Unknown 05/13/2025 11:13 AM EDT 05/13/2025 11:13 AM EDT Rosy Yu MD LAB BLOOD ORDERABLES Final Result Performing Organization Address [facility]/ZIP Co de Phone Number [facility] [address] [place] [address], * Hepatitis C antibody (01/20/2025 3:34 PM EST) Hepatitis C Antibody Negative Negative LAB CHEMISTRY METHOD 01/20/2025 7:39 PM EST [facility] Blood Venous blood specimen / Unknown Venipuncture / Unknown 01/20/2025 3:34 PM EST 01/20/2025 3:34 PM EST Christian Gibbons NP LAB BLOOD ORDERABLES Final R esult Performing Organization Address [facility]/ZIP Co de Phone Number [facility] [address] [place] [address], * HIV 1,2 antibody, p24 antigen with reflex to differentiation (01/20/2025 3:34 PM EST) [facility] HIV Combo AB/AG Negative Negative LAB CHEMISTRY METHOD 01/20/2025 7:39 PM EST [facility] Blood Venous blood specimen / Unknown Venipuncture / Unknown 01/20/2025 3:34 PM EST 01/20/2025 3:34 PM EST Narrative [facility] - 01/20/2025 7:39 PM EST This assay is a 4th generation assay allowing for earlier detection of HIV infection by detecting the presence of the HIV-1 p24 antigen as well as the traditional antibodies to HIV type 1 (including group O) and type 2. Use of a 4th generation assay is the current CDC recommendation for HIV screening. Christian Gibbons [employer] LAB BLOOD ORDERABLES Final R esult [facility] [address] [place] [address], [place] [phone] * Lipid panel with reflex to direct LDL (01/20/2025 3:34 PM EST) Cholesterol 156 0 - 200 mg/dL LAB CHEMISTRY METHOD 01/20/2025 7:18 PM EST [facility] Triglycerides 94 0 - 150 mg/dL LAB CHEMISTRY METHOD 01/20/2025 7:18 PM EST [facility] HDL 46 >=40 mg/dL LAB CHEMISTRY METHOD 01/20/2025 7:18 PM EST [facility] LDL Calculated 91 0 - 100 mg/dL LAB CHEMISTRY METHOD 01/20/2025 7:18 PM EST [facility] VLDL Cholesterol Hayden 18.8 mg/dL LAB CHEMISTRY METHOD 01/20/2025 7:18 PM EST [facility] Non HDL Chol. (LDL+VLDL) 110 <145 mg/dL LAB CHEMISTRY METHOD 01/20/2025 7:18 PM EST [facility] Chol/HDL Ratio 3.4 0.0 - 4.4 LAB CHEMISTRY METHOD 01/20/2025 7:18 PM EST [facility] Blood Venous blood specimen / Unknown Venipuncture / Unknown 01/20/2025 3:34 PM EST 01/20/2025 3:34 PM EST Christian Gibbons [employer] LAB BLOOD ORDERABLES Final R esult [facility] [address] [place] [address], [place] [phone] from Last 3 Months or Most Recently Relevant to Health Maintenance Additional Health Concerns Infection Onset Date Last Indicated Herpes simplex 05/13/2025 05/13/2025 Insurance [facility] Care Teams Vascular Technologist Relationship Specialty Start Date End Date Rosy Yu MD [address] [place] [address] PCP - General Internal Medicine 01/20/25
--- OUTSIDE RECORDS SUMMARY | 2025-08-13 08:37 | XMS_ITS | Encounter Summary ---
Author Organization [facility] Address [address] [place] [address] Care Team Providers Care Small Products Ii Assembler Name Role Phone Rosy Yu MD Primary Care Provider [phone] Reason for Referral * Consultation (Routine) - Pending Review Specialty Diagnoses / Procedures Referred By Susy london Referred To Contact Physical Therapy Diagnoses Contusion of left knee, initial encounter Hipolito Vieyra PA [address] [place] [address] Phone: tel: fax: Referral ID Status Reason Start Date Expiration Date Visits Requested Visits Authorized [id number] Pending Review Specialty Services Required 08/12/2025 08/12/2026 1 1 Encounter Details Date Type Department Care Team (Late st Contact Info) Description 08/12/2025 Telephone Orthopedic Surgery - [address] [id number] Maddie Boyd Social History Tobacco Use Types Packs/Day Years [...] for your loved ones. For example, child protective services social worker or elderly care for an older adult? [...] on file documented as of this encounter Progress Notes * Elisabet Law MA - 08/12/2025 4:18 PM EDT Referral order and demographics faxed to [facility] [place], with message to call patient to set up appts. Patient notified. vf * SAY Sutton - 08/12/2025 4:[address] Please send to physical therapy I am also waiting for the results of his MRI. I did not order these so we will need to be notified once the MRI is completed * Elisabet Law MA - 08/12/2025 4:05 PM EDT Please review. vf * Maddie Boyd - 08/12/2025 3:36 PM EDT Good afternoon Hipolito, Patient called the office stating that he was looking for a referral to Physical Therapy. He statedthat this was something that you discussed with him when you say him in the office on the . The patient would like to go to [facility] in [place]. -Maddie documented in this encounter Plan of Treatment Upcoming Encounters Date Type Department Care Team (Late st Contact Info) Description 08/21/2025 2:00 PM EDT Office Visit [facility] [place] [address] [place] [phone] Jenny Victoria PA [address] [place] [address] 12/09/2025 4:30 PM EST Office Visit Adult Medicine [facility] [address] [place] [phone] Rosy Yu MD [address] [place] [address] 01/07/2026 8:20 AM EST Consult Gastroenterology - [place] [address] [facility] [address] [facility] [place] [id number] Stephanie Katz NP [address] [facility] [address] [place] [address] Scheduled Referrals Name Type Priority Associated Diagnoses Order Schedule Ambulatory referral to Physical Therapy and Athletic Training Outpatient Referral Routine Contusion of left knee, initial encounter 1 Occurrences starting 08/12/2025 until 08/12/2026 documented as of this encounter Visit Diagnoses Diagnosis Contusion of left knee, initial encounter- Primary documented in this encounter Additional Health Concerns Infection Onset Date Last Indicated Resolved Time Herpes simplex 05/13/2025 05/13/2025 Assessment Noted Time PHQ-9 Depression Total Score: 0 02/27/20 2:18 PM EDT documented as of this encounter Care Teams Small Products Ii Assembler Relationship Specialty Start Date End Date Rosy Yu MD [address] [place] [address] PCP - General Internal Medicine 01/20/25 documented as of this encounter
== END 2025-08-12 08:09 | disposition home or self-care (01) ==
LOC: HO.HOSX 08:08
PROVIDERS: Visit Provider Physician Assistant
DX: Z13.89 Encounter for screening for other disorder (principal)

== ENCOUNTER 2025-08-15 08:03 | Outpatient (AMB) | payer OTHER, SELFPAY ==
--- OUTSIDE RECORDS SUMMARY | 2025-08-15 08:09 | XMS_ITS | Clinical Summary ---
Author Organization [facility] Address [address] [place] [address] Care Team Providers Care Railroad Design Consultant Name Role Phone Unavailable Primary Care Provider [...] Personal/Family Self 2000 [address] [place] [address]
--- OUTSIDE RECORDS SUMMARY | 2025-08-15 08:09 | XMS_ITS | Clinical Summary ---
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 Encounters Date Type Department Care Team Description 08/12/2025 Telephone Orthopedic Surgery - [address] [phone] Maddie Boyd 08/08/2025 10:00 AM EDT Consult Orthopedics [address] [phone] Hipolito Vieyra PA Contusion of left knee, initial encounter (Primary Dx); Acute pain of left knee 08/06/2025 2:30 PM EDT Consult Infectious Disease [facility] [address] [phone] Rochelle Lackey MD Irritable bowel syndrome with diarrhea (Primary Dx); Chronic diarrhea; History of Clostridioides difficile infection 07/31/2025 11:00 AM EDT Office Visit Adult Medicine [address] [phone] Rosy Yu MD Primary hypertension (Primary Dx); Acute pain of left knee; Obesity (BMI 30-39.9) 06/06/2025 2:30 PM EDT Office Visit [address] [phone] Rosy Yu MD Muscle spasm (Primary Dx); Primary hypertension; Family history of hemochromatosis; Obesity (BMI 30-39.9); C. difficile diarrhea; Elevated total protein; Hyperphosphatemia 06/05/2025 9:26 AM EDT - 06/05/2025 11:59 PM EDT Hospital Encounter [facility] Xray [address] [place] [phone] Other dysphagia; Sensation of lump in throat; Dysuria Discharge Disposition: Home or Self Care 06/03/2025 Telephone Infectious Disease - [place] [address] [phone] Shaklia Stanley [place] 05/27/2025 3:39 PM EDT - 05/27/2025 11:59 PM EDT Hospital Encounter Radiology Department - [address] [phone] Nonintractable chronic migraine Discharge Disposition: Home or [...] care for your loved ones. For example, attendant children's institution or elderly care for an older adult? [...] Description 08/21/2025 2:00 PM EDT Office Visit [facility] [place] 175 [facility] [address] [place] [phone] Jenny Victoria PA 175 [facility] [address] [place] [address] 12/09/2025 4:30 PM EST Office Visit Adult Medicine [facility] [place] [address] [place] [address] Rosy Yu MD [address] [place] [address] 01/07/2026 8:20 AM EST Consult Gastroenterology - [place] 175 [facility] 175 [facility] [address] [place] [phone] Stephanie Katz NP 175 [facility] [address] [place] [address] Health Maintenance Due Date Last Done Comments [...] dysphagia Sensation of lump in throat Dysuria ENTOMOLOGY PROFESSOR VIDEOFLUOROSCOPIC SWALLOW STUDY WITH BARIUM Routine 06/05/2025 [...] 05/27/2025 4:30 PM EDT Nonintractable chronic migraine HEPATITIS C ANTIBODY Routine 01/20/2025 3:34 PM [...] Modality Radiographic Radha ging us Historical Provider IMG XR PROCEDURES Final R esult * Hernandez urine culture tube (06/06/2025 4:48 PM EDT) Pathologist [facility] Extra Tube Hold for add-ons. 06/06/2025 7:01 PM EDT [facility] Comment:Auto resulted. Urine Urine specimen obtained by clean catch procedure / Unknown 06/06/2025 4:48 PM EDT 06/06/2025 4:48 PM EDT Christian Gibbons NP LAB URINE ORDERABLES Final R esult [facility] [address] [place] [address], [place] [phone] * Urinalysis with reflex microscopic and culture (06/06/2025 4:39 PM EDT) [facility] Specific [place] Urine 1.016 1.003 - 1.030 LAB URINALYSIS - AUTOMATED METHOD 06/06/2025 6:51 PM EDT [facility] pH, Urine 7.0 5.0 - 8.0 pH LAB URINALYSIS - AUTOMATED METHOD 06/06/2025 6:51 PM EDT [facility] Leukocytes, Urine Negative Negative LAB URINALYSIS - AUTOMATED METHOD 06/06/2025 6:51 PM EDT [facility] Nitrite, Urine Negative Negative LAB URINALYSIS - AUTOMATED METHOD 06/06/2025 6:51 PM EDT [facility] Protein, Urine Negative <=Trace mg/dL LAB URINALYSIS - AUTOMATED METHOD 06/06/2025 6:51 PM EDT [facility] Glucose, Urine Negative Negative mg/dL LAB URINALYSIS - AUTOMATED METHOD 06/06/2025 6:51 PM EDT [facility] Ketones, Urine Negative Negative mg/dL LAB URINALYSIS - AUTOMATED METHOD 06/06/2025 6:51 PM EDT [facility] Urobilinogen, Urine 0.2 0.2 - 1.0 mg/dL LAB URINALYSIS - AUTOMATED METHOD 06/06/2025 6:51 PM EDT [facility] Bilirubin, Urine Negative Negative LAB URINALYSIS - AUTOMATED METHOD 06/06/2025 6:51 PM EDT [facility] Blood, Urine Negative Negative LAB URINALYSIS - AUTOMATED METHOD 06/06/2025 6:51 PM EDT [facility] Urine Urine specimen obtained by clean catch procedure / Unknown Non-blood Collection / Unknown 06/06/2025 4:39 PM EDT 06/06/2025 4:39 PM EDT us Christian Gibbons INSPECTOR BICYCLE LAB URINE ORDERABLES Final R esult [facility] [address] [place] [address], * Hemochromatosis mutation (06/06/2025 4:39 PM EDT) [...] clinical information reviewed by Daksha Robles, PhD, [facility]. DETAILED ASSAY INFORMATION: Hereditary hemochromatosis (HH) is [...] variants in the HFE gene, C282Y (NM 581483.2: c.845G>A, p.[id number]) and H63D (NM 961381.2: c.187C>G, p.Oka85Rbp), that are commonly associated with HH. These [...] Health care providers, please contact your local [employer]' genetic counselor or call [phone] ( ) for assistance with the interpretation of these results. This test was developed and its analytical performance characteristics have been determined by [facility]. It has not been cleared or approved by FDA. This assay has been validated pursuant to the CLIA regulations and is used for clinical purposes. For more information, please refer to http://education.TriplePulse.Cupple/faq/hemochromatosis. (This link is being provided for informational/educational purposes only.) A portion of the testing was performed at [facility]. Reviewed and signed by Laboratory results and submitted clinical information reviewed by Daksha Robles, PhD, [facility], Signed on 06/16/2025 at 23:48 Test Performed at: [facility] [address] [place] [address] Rain Cordero MD, PhD, [facility] Blood Venous blood specimen / Unknown Venipuncture / Unknown 06/06/2025 4:39 PM EDT 06/06/2025 4:39 PM EDT Rosy Yu MD LAB MOLECULAR DIAGNOSTICS O RDERABLES Final Result [facility] [address] [place] [address] * (ABNORMAL) Phosphorus (06/06/2025 4:39 PM EDT) Phosphorus 4.8(H) 2.5 - 4.5 mg/dL LAB CHEMISTRY METHOD 06/06/2025 7:22 PM EDT [facility] Blood Venous blood specimen / Unknown Venipuncture / Unknown 06/06/2025 4:39 PM EDT 06/06/2025 4:39 PM EDT Rosy Yu MD LAB BLOOD ORDERABLES Final Result Performing Organization Address [facility] Co de Phone Number [facility] [address] [place] [address], [place] [phone] * Magnesium (06/06/2025 4:39 PM EDT) Magnesium 2.2 1.9 - 2.6 mg/dL LAB CHEMISTRY METHOD 06/06/2025 7:22 PM EDT [facility] Blood Venous blood specimen / Unknown Venipuncture / Unknown 06/06/2025 4:39 PM EDT 06/06/2025 4:39 PM EDT Rosy Yu MD LAB BLOOD ORDERABLES Final Result Performing Organization Address City/[facility]/ZIP Co de Phone Number [facility] [address] [place] [address], [place] [phone] * Creatine kinase (06/06/2025 4:39 PM EDT) [facility] Total CK 142 22 - 269 unit/L LAB CHEMISTRY METHOD 06/06/2025 7:22 PM EDT [facility] Blood Venous blood specimen / Unknown Venipuncture / Unknown 06/06/2025 4:39 PM EDT 06/06/2025 4:39 PM EDT us Rosy Yu MD LAB BLOOD ORDERABLES Final Result [facility] [address] [place] [address], [place] [phone] * (ABNORMAL) Comprehensive metabolic panel (06/06/2025 4:39 PM EDT) [facility] Sodium 139 133 - 145 mmol/L LAB CHEMISTRY METHOD 06/06/2025 7:30 PM [facility] Potassium 3.8 3.5 - 5.5 mmol/L LAB CHEMISTRY METHOD 06/06/2025 7:30 PM [facility] Chloride 101 96 - 110 mmol/L LAB CHEMISTRY METHOD 06/06/2025 7:30 PM [facility] CO2 28 21 - 32 mmol/L LAB CHEMISTRY METHOD 06/06/2025 7:30 PM [facility] Anion Gap 10 3 - 11 LAB CHEMISTRY METHOD 06/06/2025 7:30 PM [facility] Glucose 78 70 - 100 mg/dL LAB CHEMISTRY METHOD 06/06/2025 7:30 PM [facility] BUN 10 5 - 25 mg/dL LAB CHEMISTRY METHOD 06/06/2025 7:30 PM [facility] Creatinine 0.90 0.70 - 1.30 mg/dL LAB CHEMISTRY METHOD 06/06/2025 7:30 PM EDT [facility] eGFR 121 >=60 mL/min/1. 73m2 LAB CHEMISTRY METHOD 06/06/2025 7:30 PM [facility] Comment:Calculation based on the Chronic Kidney Disease Epidemiology Collaboration (CKD-EPI) equation refit without adjustment for race. BUN/Creatinine Ratio 11.1 LAB CHEMISTRY METHOD 06/06/2025 7:30 PM [facility] Calcium 10.1 8.5 - 10.5 mg/dL LAB CHEMISTRY METHOD 06/06/2025 7:30 PM [facility] AST (SGOT) 23 10 - 42 unit/L LAB CHEMISTRY METHOD 06/06/2025 7:30 PM [facility] ALT (SGPT) 57 10 - 60 unit/L LAB CHEMISTRY METHOD 06/06/2025 7:30 PM [facility] Alkaline Phosphatase 99 42 - 121 unit/L LAB CHEMISTRY METHOD 06/06/2025 7:30 PM T [facility] Total Protein 8.2(H) 6.0 - 8.0 g/dL LAB CHEMISTRY METHOD 06/06/2025 7:30 PM [facility] Albumin 5.1(H) 3.2 - 5.0 g/dL LAB CHEMISTRY METHOD 06/06/2025 7:30 PM [facility] Total Bilirubin 0.7 0.0 - 1.4 mg/dL LAB CHEMISTRY METHOD 06/06/2025 7:30 PM T [facility] Blood Venous blood specimen / Unknown Venipuncture / Unknown 06/06/2025 4:39 PM EDT 06/06/2025 4:39 PM EDT us Rosy Yu MD LAB BLOOD ORDERABLES Final Result [facility] [address] [place] [address], [place] [phone] * XR Barium Swallow with Video and [...] Signed Date: 06/05/2025 12:20 ET Workstation ID: [id number] Transcribed By: Self Edit Transcribed Date: 06/05/2025 10:54 ET Resident/PA/INSPECTOR BICYCLE: Analia Rogers Narrative 06/05/2025 12:20 PM EDT [...] Signed Date: 06/05/2025 12:20 ET Workstation ID: [id number] Transcribed By: Self Edit Transcribed Date: 06/05/2025 10:54 ET Resident/PA/INSPECTOR BICYCLE: Analia Rogers Christian Gibbons NP IMG FLUOROSCOPY PROCEDURES F inal Result * ENTOMOLOGY PROFESSOR videofluoroscopic swallow study with barium (06/05/2025 9:45 AM EDT) Janett Hurst SLP - 06/05/2025 9:45 AM EDT NICHOLE Teresa [...] RECOMMENDATIONS: Evaluation Only - No Additional Skilled ENTOMOLOGY PROFESSOR Needs Indicated at this time. Summary and Impressions: José Antonio Page is a 24 y.o. who presents with WNL Oropharyngeal Swallow Function on MBS today. No laryngeal penetration and no tracheal aspiration. Pharynx cleared of any residue. Discussed use of strategies when pt has episodes of fatigue. Pt also c/o misarticulations, new for patient. Pt has f/u with Neurology. Recommend ENTOMOLOGY PROFESSOR if warranted after work up. JAVA WEB USER INTERFACE DEVELOPER REQUIRED: No GENERAL INFORMATION: Ordering Physician: Christian [...] of lump in throat [R09.A2] Dysuria [R30.0] ENTOMOLOGY PROFESSOR VIDEOFLUOROSCOPIC SWALLOW STUDY WITH BARIUM [[id number]] XR BARIUM SWALLOW WITH VIDEO AND SPEECH [[id number]] ALLERGIES: Allergies Allergen Reactions Penicillin Rash OBJECTIVE [...] Verbal Understanding, and Demonstrated Skills Janett Yousif, NICHOLE 06/05/2025 Christian Gibbons INSPECTOR BICYCLE ENTOMOLOGY PROFESSOR ORDERABLES Final Result * Gastrointestinal pathogens molecular study (05/28/2025 2:05 PM EDT) Campylobacter Detection by PCR Not Detected Not Detected LAB MICROBIOLOGY METHOD 5 6:03 PM EDT [facility] Plesiomonas shigelloides Detection by PCR Not Detected Not Detected LAB MICROBIOLOGY METHOD 5 6:03 PM EDT [facility] Salmonella Detection by PCR Not Detected Not Detected LAB MICROBIOLOGY [facility] 5 6:[facility] Vibrio Detection by PCR Not Detected Not Detected LAB MICROBIOLOGY METHOD 5 6:03 [facility] Vibrio cholerae Detection by PCR Not Detected Not Detected LAB MICROBIOLOGY METHOD 5 6:03 PM [facility] Yersinia enterocolitica Detection by PCR Not Detected Not Detected LAB MICROBIOLOGY METHOD 5 6:03 [facility] Enteroaggregative E coli EAEC Detection by PCR Not Detected Not Detected LAB MICROBIOLOGY METHOD 5 6:03 [facility] Enteropathogenic E coli EPEC Detection Not Detected Not Detected LAB MICROBIOLOGY METHOD 5 6:03 PM [facility] Enterotoxigenic E coli ETEC LTST Detection Not Detected Not Detected LAB MICROBIOLOGY METHOD 5 6:03 [facility] Shiga-like toxin producing E coli STEC STX1 STX2 Det Not Detected Not Detected LAB MICROBIOLOGY METHOD 5 6:03 [facility] Shigella Enteroinvasive E coli EIEC Detection Not Detected Not Detected LAB MICROBIOLOGY METHOD 5 6:03 PM [facility] Cryptosporidium Detection by PCR Not Detected Not Detected LAB MICROBIOLOGY METHOD 5 6:03 PM [facility] Cyclospora cayetanensis Detection by PCR Not Detected Not Detected LAB MICROBIOLOGY METHOD 5 6:03 PM [facility] Entamoeba histolytica Detection by PCR Not Detected Not Detected LAB MICROBIOLOGY METHOD 5 6:03 PM [facility] Giardia lamblia Detection by PCR Not Detected Not Detected LAB MICROBIOLOGY METHOD 5 6:03 PM [facility] Adenovirus F 40 41 Detection by PCR Not Detected Not Detected LAB MICROBIOLOGY METHOD 5 6:03 PM EDT [facility] Astrovirus Detection by PCR Not Detected Not Detected LAB MICROBIOLOGY METHOD 5 6:03 PM EDT [facility] Norovirus GI GII Detection by PCR Not Detected LAB MICROBIOLOGY METHOD 5 6:03 PM EDT [facility] Sapovirus Detection by PCR Not Detected Not Detected LAB MICROBIOLOGY METHOD 5 6:03 PM EDT [facility] Rotavirus A Detection by PCR Not Detected Not Detected LAB MICROBIOLOGY METHOD 5 6:03 PM EDT [facility] Stool Rectum structure / Unknown Non-blood Collection / Unknown 05/28/2025 2:05 PM EDT 05/28/2025 2:05 PM EDT [facility] - 05/28/2025 6:03 PM EDT [...] additional guidance. Testing Performed by MULTIPLEXED PCR us Rosy Yu MD LAB MICROBIOLOGY - GENERAL ORDERABLES Final Result [facility] [address] [place] [address], * Ova and parasite examination (05/28/2025 2:05 PM EDT) Ova and Parasite No Ova or Parasite seen. 06/02/2025 11:58 AM EDT [facility] Stool Rectum structure / Unknown Non-blood Collection / Unknown 05/28/2025 2:05 PM EDT 05/28/2025 2:05 PM EDT Narrative [facility] - 06/02/2025 11:58 AM EDT Special test request required for Coccidia and Microsporidia. Rosy Yu MD LAB MICROBIOLOGY - GENERAL ORDERABLES Final Result Performing Organization Address [facility]/ZIP Co de Phone Number [facility] [address] [place] [address], [place] [phone] * (ABNORMAL) Clostridium difficile molecular study (05/28/2025 2:05 PM EDT) Pathologist [facility] Clostridium difficile PCR Positive (AA) Negative LAB MICROBIOLOGY METHOD 05/28/2025 6:32 PM EDT [facility] Comment: CRITICAL RESULT POSITIVE FOR TOXIN PRODUCING CLOSTRIDIOIDES DIFFICILE, NO ADDITIONAL TESTING IS NECESSARY. REPEAT SAMPLES SHOULD NOT BE SUBMITTED FOR TEST OF CURE. Stool Rectum structure / Unknown Non-blood Collection / Unknown 05/28/2025 2:05 PM EDT 05/28/2025 5:21 PM EDT Rosy Yu MD LAB MICROBIOLOGY - GENERAL ORDERABLES Final Result Performing Organization Address [facility] Co de Phone Number [facility] [address] [place] [address], [place] [phone] * Clostridium difficile toxin (05/28/2025 2:05 PM EDT) Pathologist [facility] C difficile Toxins A+B, EIA 05/28/2025 5:21 PM EDT [facility] Comment:Refer to C. difficil e PCR assay for results. Stool Rectum structure / Unknown Non-blood Collection / Unknown 05/28/2025 2:05 PM EDT 05/28/2025 2:05 PM EDT Rosy Yu MD LAB MICROBIOLOGY - GENERAL ORDERABLES Final Result Performing Organization Address [facility]/ZIP Co de Phone Number [facility] [address] [place] [address], [place] [phone] * MR Brain wo Contrast (05/27/2025 4:30 [...] Signed Date: 05/27/2025 16:37 ET Workstation ID: [id number] Transcribed By: Self Edit Transcribed Date: 05/27/2025 [...] Signed Date: 05/27/2025 16:37 ET Workstation ID: [id number] Transcribed By: Self Edit Transcribed Date: 05/27/2025 16:31 ET us Rosy Yu MD IMG MRI PROCEDURES Final Re sult * Hepatitis C antibody (01/20/2025 3:34 PM EST) Pathologist [facility] Hepatitis C Antibody Negative Negative LAB CHEMISTRY METHOD 01/20/2025 7:39 PM EST [facility] Blood Venous blood specimen / Unknown Venipuncture / Unknown 01/20/2025 3:34 PM EST 01/20/2025 3:34 PM EST Christian Gibbons INSPECTOR BICYCLE LAB BLOOD ORDERABLES Final R esult [facility] [address] [place] [address], * HIV 1,2 antibody, p24 antigen with reflex to differentiation (01/20/2025 3:34 PM EST) HIV Combo AB/AG Negative Negative LAB CHEMISTRY METHOD 01/20/2025 7:39 PM EST [facility] Blood Venous blood specimen / Unknown Venipuncture / Unknown 01/20/2025 3:34 PM EST 01/20/2025 3:34 PM EST Narrative [facility] - 01/20/2025 7:39 PM EST This assay is a 4th generation assay allowing for earlier detection of HIV infection by detecting the presence of the HIV-1 p24 antigen as well as the traditional antibodies to HIV type 1 (including group O) and type 2. Use of a 4th generation assay is the current CDC recommendation for HIV screening. Christian Gibbons INSPECTOR BICYCLE LAB BLOOD ORDERABLES Final R esult [facility] [address] [place] [address], [place] [phone] * Lipid panel with reflex to direct LDL (01/20/2025 3:34 PM EST) [facility] Signature Cholesterol 156 0 - 200 mg/dL LAB CHEMISTRY METHOD 01/20/2025 7:18 PM EST [facility] Triglycerides 94 0 - 150 mg/dL LAB CHEMISTRY METHOD 01/20/2025 7:18 PM EST [facility] HDL 46 >=40 mg/dL LAB CHEMISTRY METHOD 01/20/2025 7:18 PM EST [facility] LDL Calculated 91 0 - 100 mg/dL LAB CHEMISTRY METHOD 01/20/2025 7:18 PM EST [facility] VLDL Cholesterol Hayden 18.8 mg/dL LAB CHEMISTRY METHOD 01/20/2025 7:18 PM EST [facility] Non HDL Chol. (LDL+VLDL) 110 <145 mg/dL LAB CHEMISTRY METHOD 01/20/2025 7:18 PM EST [facility] Chol/HDL Ratio 3.4 0.0 - 4.4 LAB CHEMISTRY METHOD 01/20/2025 7:18 PM EST [facility] Blood Venous blood specimen / Unknown Venipuncture / Unknown 01/20/2025 3:34 PM EST 01/20/2025 3:34 PM EST Christian Gibbons INSPECTOR BICYCLE LAB BLOOD ORDERABLES Final R esult Performing Organization Address [facility]/ZIP Co de Phone Number [facility] [address] [place] [address], [place] [phone] from Last 3 Months or Most Recently Relevant to Health Maintenance Additional Health Concerns Infection Onset Date Last Indicated Herpes simplex 05/13/2025 05/13/2025 Insurance [facility] PL[facility] Care Teams Mask Design Engineer Relationship Specialty Start Date End Date Rosy Yu MD [address] [place] [address] PCP - General Internal Medicine 01/20/25
--- OUTSIDE RECORDS SUMMARY | 2025-08-15 08:09 | XMS_ITS | Encounter Summary ---
Author Organization [facility] Address [address] [place] [address] Care Team Providers Care Cardroom Plastic Card Grader Name Role Phone Rosy Yu MD Primary Care Provider [phone] Reason for Referral * Consultation (Routine) - Pending Review Specialty Diagnoses / Procedures Referred By Susy london Referred To Contact Physical Therapy Diagnoses Contusion of left knee, initial encounter Hipolito Vieyra PA [address] [place] [address] Phone: tel: fax: Referral ID Status Reason Start Date Expiration Date Visits Requested Visits Authorized [id number] Pending Review Specialty Services Required 08/12/2025 08/12/2026 1 1 Encounter Details Date Type Department Care Team (Late st Contact Info) Description 08/12/2025 Telephone Orthopedic Surgery - [address] [phone] Maddie Boyd Social History Tobacco [...] for your loved ones. For example, child care supervisor or elderly care for an older adult? [...] The patient would like to go to [facility] in [place]. -Maddie documented in this encounter Plan of Treatment Upcoming Encounters Date Type Department Care Team (Late st Contact Info) Description 08/21/2025 2:00 PM EDT Office Visit [facility] [place] [facility] [place] [address] [address] [place] [address] Jenny Victoria PA [address] [address] [facility] [address] [place] [address] 12/09/2025 4:30 PM EST Office Visit Adult Medicine [facility] [address] [place] [phone] Rosy Yu MD [address] [place] [address] 01/07/2026 8:20 AM EST Consult Gastroenterology - [place] [address] [facility] [address] [place] [phone] Stephanie Katz NP 175 [facility] [address] [place] [address] Scheduled Referrals Name Type Priority Associated Diagnoses [...] documented as of this encounter Care Teams Cardroom Plastic Card Grader Relationship Specialty Start Date End Date Rosy Yu MD [address] [place] [address] PCP - General Internal Medicine 01/20/25 documented as of this encounter
--- NOTE | 2025-08-15 11:29 | A.OFFVIS_ITS ---
VS Expanded 08/15/25 11:38 Height 5 ft 8 in Weight 226 lb 4 oz BMI 34.4 Body Fat % 31.6 Body Fat Mass 71.4 Fat Free Mass 154.8 Visceral Fat Rating 13 Body Water % 49.6 Body Water Mass 112.2 Basal Metabolic Rate/Score 2,137 Intake Visit Reasons: [employer] [facility] BMI 34.4 Allergies Penicillins Allergy (Verified 08/15/25 11:29) Anaphylaxis Medication List - Last Reconciled 08/15/25 by Lm Nasicmento MD acetaminophen 1,000 mg (2 x 500 mg) PO .q8 PRN amlodipine 2.5 mg PO DAILY ibuprofen 600 mg PO Q8H PRN HPI HPI [employer] [facility] BMI 34.4: Details: Start time: 11.30am, End time: 12.15pm ?I spent 40 minutes speaking with the patient on the phone plus an additional 5 minutes reviewing and updating records for a total of 45 minutes HPI Comments Details: Previous weight loss efforts: Water diet Wakes up: 5.30am, Sleeps: 10pm Breakfast: skips Lunch: skips Dinner: 6pm (rice, beans, chicken, tacos) Snacks: 2 snacks before dinner (chips), 7pm (ice cream or chips) Exercise: none Beverages: Coffee (none), Tea: none, Soda: regular Coke or Pepsi (daily), Juice: (cranberry 2lt x3-4/wk), ETOH: none PFSH Medical History (Updated 08/15/25 @ 11:57 by Lm Nascimento MD) Anxiety Hypertension BMI 34.0-34.9,adult Obesity Surgical History (Updated 07/31/25 @ 15:30 by Alba Marshall CMA) Hx of tonsillectomy Family History (Updated 07/31/25 @ 15:32 by Alba Marshall CMA) Mother Skin cancer Breast cancer genetic susceptibility Drug abuse Father Drug abuse Maternal Grandfather COPD (chronic obstructive pulmonary disease) Prostate cancer Social History (Updated 07/31/25 @ 15:33 by Alba Marshall CMA) Alcohol intake: never Patient Tobacco Use Status: Never used Tobacco Physical Exam Vital Signs: BMI result Body Mass Index 34.4 Telehealth Telehealth Telehealth Platform: Telephone Location of provider rendering services: practice address Location of patient: address on file Patient Identification confirmed using: Name, : Yes Telehealth method: voice only Patient verbally consented to treatment: Yes Patient verbally consented to billing insurance company: Yes Patient informed of any privacy concerns related to visit: Yes Minutes spent on Phone/Video with Pt.: 45 Assessment & Plan Assessment & Plan (1) Obesity: Code(s): E66.9 - Obesity, unspecified Category: Medical Qualifiers: Obesity type: due to excess calories Obesity classification: adult class 1 (BMI 30 - 34.9) Serious obesity comorbidity presence: with serious comorbidity Body mass index: BMI 34.0-34.9 Qualified Code(s): E66.811 - Obesity, class 1; E66.09 - Other obesity due to excess calories; Z68.34 - Body mass index [BMI] 34.0-34.9, adult Plan: 1. As we discussed, based on your present BMI you are approximately 55lbs overweight. In my opinion, for any weight loss strategy to be successful should have a high probability to help you lose at least 50lbs out of 55lbs of the extra weight you carry. We discussed in detail the available therapeutic options: 1) our lifestyle intervention program that has an average weight loss of 10% in 3 months.?Some patients continue it for longer and have lost over 50lbs but this is not common. Our lifestyle program can be provided by me or by using our software greg, the [employer] greg. I will provide you with a link to use the greg if you choose to do so. We use protein shakes and protein bars to replace some of the meals of the day and cover your appetite better. We will decide together the exact combination. 2) Weight loss medications: these can be used in conjunction with our lifestyle program or you may choose to use them without following a lifestyle program from my program but your own. As we discussed, your insurance requires you to use first a pill called Phentermine. We also discussed that you can self pay for the first 3 months and the cost is $249 for the first month and $499 for any other month thereafter. These payments go to the drug company directly and not to us. 3) We also discussed about the lap sleeve gastrectomy. In my opinion this is the best option to solve your problem based on your situation and should be used in conjunction with the two previous options. A good strategy to make this decision to proceed with surgery, is to set some goals with the lifestyle intervention and medication options: If you don't lose at least 10lbs the first 6 weeks after starting the program or at least 10% in 3 months. ?I emphasized the importance of close follow-up, adherence to instructions and good communication. The surgery does not replace the need to change your lifestlyle which is the cause of the obesity problem. The surgery provides the motivation to try again to change your lifestyle, it reduces the appetite and make the transition to a better lifestyle easier and doubles the amount of weight you would lose compared to doing the lifestyle change without the surgery. You will need to be on a liquid diet with protein shakes for 2 weeks before surgery to maximize weight loss and boost your nutritional status to recover better from surgery and also for the first two weeks after surgery to let the stomach heal before we introduce other foods. After the first 2 weeks we will introduce protein bars and soft foods like scrambled eggs, cottage cheese and yogurt and after the 6th week will introduce meat, fish and cooked vegetables in small amounts. Over time you should be able to eat everything in small amounts. Side effects like nausea, vomiting, heartburn or abdominal pain are not common in the practice unless you are not following in the practice. This operation requires lifetime commitment to following in our practice and communication with me. You will much less weight and experience side effects if you don?t communicate or not following in the practice. Complications are rare and in our practice is about 1/10 of the national average. 2. Nutritional counseling. Start with one premade PREMIER protein (buy at [employer] or [employer]) shake (mix 4oz of Premier mixed with 4oz low fat unsweetened almond milk each) at 7am-9am, one protein bar (Fit Crunch protein bar, buy at [employer], or [employer]) at 10am-12pm, another premade PREMIER protein shake (mix 4oz of Premier mixed with 4oz low fat unsweetened almond milk each) at 1pm-3pm, another [employer] protein bar at 4pm-6pm,? dinner at 7pm (8 forks of protein and 8 forks of salad/vegetables) and if hungry, HALF protein bar after dinner at 9pm-10pm. So you do 2 protein shakes, 2 to 2.5 protein bars and one meal per day. Meal to include lean meat (beef, fish, pork, turkey, chicken), or slovak yogurt, or egg whites, or beans with a salad with olive oil and fruits (berries, pears, apples, kiwi). Avoid salt, breads, potatoes, rice, pasta, desserts. 3. Each shake would be drunk slowly, like coffee in a period of 2 hours. 4. Cut each bar in 4 pieces and eat each piece in 30min ?to make each bar last 2 hours. 5. I emphasized the importance of measuring accurately the food portion and measure it when serving the food in plate 6. The meal portions include 8 full-size forks of meat and 8 full-size forks of salad. You always eat the meat portion but you can replace up to 4 forks for salad/vegetables with rice, potatoes or pasta, or a fruit ?if you like. The less you do it the better weight loss will be. 7. One full-size fork is what it can be scooped on the fork without falling aside and not what can be bit with the fork. Use regular forks like those you find in a typical restaurant. 8.? Please buy the body composition scale we discussed and send me weight measurements as soon as possible and then once a week. Always include your diet and exercise plan. 9. Start walking outside daily, tracking calories with a goal of 300 calories per day, daily. Goal is to burn 2000 calories per week on exercise, which means either 300 calories daily, or 400 calories 5 days per week, or 500 calories 4 days per week, or 650 calories 3 days per week. 10. The best choice would be to purchase a stationary bike at home that can track calories. If you get one, please start stationary bike at a resistance level of 4.0 Increase level by 1.0 every 3 min to a max level of 10.0. Stay at this level for 3 min and then return to level 4.0 and repeat same steps until 300 calories are burned. Goal is to burn 2000 calories per week on exercise 11. Goal is to lose at least 1.5-2lbs per week 12. Goal to lose at least 10% of your weight, which is about 26lbs. Minimum weight goal: 200lbs 13. Please follow the diet plan exactly without any change. If you don't like something about the plan or you feel hungry you need to communicate with me so I can help you revise the plan. You should not change the plan yourself 14. Start Phentermine daily at 10am. We discussed the potential side-effects of the Phentermine such as irritability, dry mouth, difficulty sleeping, dizziness, numbness in feet and high blood pressure. I asked her to get a blood pressure monitor and measure the blood pressure daily in the morning and evening. She needs to send the blood pressure readings daily and to call the office for blood pressure over 140/80 and she understands that.
[2025-08-15 11:38] VITALS: BMI 34.4
== END 2025-08-15 12:15 | disposition home or self-care (01) ==
LOC: HO.HBS 08:03
PROVIDERS: Visit Provider Surgery
DX: E66.811 Obesity, class 1 (principal); E66.09 Other obesity due to excess calories; Z68.34 Body mass index [BMI] 34.0-34.9, adult
CPT/HCPCS: 99204